=== PATIENT | female | born 1970 | race Caucasian/White ===

== ENCOUNTER → 2017-11-07 15:46 | Outpatient (REF) | payer MEDICAID, SELFPAY ==
[2017-11-07 20:52] LABS: Abs Immature Grans 0.01 k/cumm (0.0-0.09); Absolute Basophil Count 0.04 k/cumm (0.0-0.2); Absolute Eosinophil Count 0.23 k/cumm (0.0-0.7); Absolute Lymphocyte Count 3.01 k/cumm (1.2-3.4); Absolute Monocyte Count 0.89 k/cumm (0.11-0.7); Absolute Neutrophil Count 4.78 k/cumm (1.2-6.7); Basophils % 0.4; Eosinophils % 2.6; HCT 40.4 % (36.0-46.0); HGB 13.6 g/dL (12.0-15.5); Immature Grans % 0.1; Lymphocytes % 33.6; Mean Corp. HGB Concentration 33.7 g/dL (32.0-36.0); Mean Corpuscular Hemoglobin 33.9 pg (27.0-33.0); Mean Corpuscular Volume 100.7 fL (80-95); Mean Platelet Volume 11.3 fL (8.0-11.0); Monocytes % 9.9; Neutrophils % 53.4; Platelet Count 241 x1000/uL (130-400); RBC 4.01 m/cumm (4.00-5.20); RBC Distribution Width 13.3 % (11.7-14.6); White Blood Cell Count 8.96 k/cumm (4.4-10.8)
[2017-11-07 21:42] LABS: ALT 16 U/L (12-78); AST 16 U/L (15-37); Albumin 4.1 g/dL (3.4-5.0); Alkaline Phosphatase 74 U/L (46-116); Anion Gap 11.5 mmol/L (3-11); BUN 11 mg/dL (7-18); Bilirubin, Total 0.4 mg/dL (0.2-1.0); CO2 26.5 mmol/L (21.0-32.0); CREATININE 0.63 mg/dL (0.55-1.02); Calcium 8.9 mg/dL (8.5-10.1); Chloride 104 mmol/L (98-107); Creatine Kinase 65 U/L (26-192); FREE T4 0.85 ng/dL (0.76-1.46); Glucose 100 mg/dL (70-100); LDH 144 U/L (81-234); Potassium 3.6 mmol/L (3.5-5.1); Sodium 142 mmol/L (136-145); TSH 0.29 uIU/mL (0.358-3.74); Total Protein 6.9 g/dL (6.4-8.2)
[2017-11-08 16:13] LABS: T3,Free 3.9 pg/ml (2.8-5.3)
== END ==
LOC: NCHCN 15:46
PROVIDERS: PCP Internal Medicine; Visit Provider Internal Medicine
DX: R63.4 Abnormal weight loss (principal); E04.1 Nontoxic single thyroid nodule; N64.4 Mastodynia
CPT/HCPCS: 80053; 82550; 83615; 84439; 84443; 84481; 85025

== ENCOUNTER 2018-04-29 01:17 | Outpatient (CLI) | payer MEDICAID, SELFPAY ==
--- NOTE | 2018-04-29 14:10 | DI.CT_ITS ---
SYMPTOMS/DIAGNOSIS: LEFT GROIN PAIN X 2 MOS, R10.32, NO KNOWN INJURY, NAUSEA/VOMITING,DIARRHEA X [address] WEIGHT LOSS [address] OF THE ABDOMEN AND PELVIS: Comparison is made with March,. The exam is somewhat limited by lack of intraabdominal fat. The heart size is normal. The lung bases are clear. the liver, gallbladder, spleen, adrenals, pancreas and kidneys are unremarkable. The urinary bladder is nearly empty. The patient is status post hysterectomy. There is no bowel dilatation or wall thickening. There is a moderate quantity of stool. No adenopathy, free air or free fluid is seen. There is calcification in the abdominal aorta but no evidence of an aneurysm. IMPRESSION: No acute abnormality.
[2018-04-29] MEDS: Omnipaque 350 MG/ML 100 ML BTL 66 ML IJ (14:11)
[2018-04-29] MEDS: Omnipaque 350 MG/ML 50 ML BTL IJ (14:12)
== END 2018-04-29 01:37 ==
PROVIDERS: PCP Internal Medicine; Visit Provider Internal Medicine
DX: R10.32 Left lower quadrant pain (principal); R11.2 Nausea with vomiting, unspecified; R19.7 Diarrhea, unspecified; R63.4 Abnormal weight loss
CPT/HCPCS: 74177; J3490; Q9967

== ENCOUNTER 2018-05-22 00:17 | Outpatient (CLI) | payer MEDICAID, SELFPAY ==
--- NOTE | 2018-05-22 14:49 | DI.MRI_ITS ---
SYMPTOMS/DIAGNOSIS: HEADACHE, R51, CHIARI MALFORMATION, G93.5 MRI OF THE BRAIN: Routine noncontrast examination was performed. Comparison examinations are 08/21/16 and 06/30/12. There are again seen postsurgical changes in the posterior cranial fossa. The low-lying cerebellar tonsils are unchanged in configuration compared to the prior examination. There is normal signal in the brain parenchyma. The ventricles are intact. The basilar cisterns are patent. There is no acute midline shift or mass effect. The diffusion weighted images have a normal appearance. Gradient imaging shows no intracranial hemorrhage. There is a flow void in the standing rock of [place]. The pituitary gland appears grossly unremarkable. There is mucosal thickening in the maxillary sinuses, ethmoid air cells and left sphenoid sinus. No fluid levels are seen. The orbits and retroorbital soft tissues are unremarkable. IMPRESSION: No acute intracranial process.
== END 2018-05-22 00:37 ==
PROVIDERS: PCP Internal Medicine; Visit Provider Internal Medicine
DX: R51 Headache (principal); G93.5 Compression of brain
CPT/HCPCS: 70551

== ENCOUNTER 2018-10-24 16:31 | Outpatient (REF) | payer MEDICAID, SELFPAY ==
[2018-10-24 21:16] LABS: ALT 20 U/L (12-78); AST 9 U/L (15-37); Albumin 3.5 g/dL (3.4-5.0); Alkaline Phosphatase 90 U/L (46-116); Anion Gap 13.2 mmol/L (3-11); BUN 9 mg/dL (7-18); Bilirubin, Total 0.9 mg/dL (0.2-1.0); CO2 26.8 mmol/L (21.0-32.0); CREATININE 0.71 mg/dL (0.55-1.02); Calcium 10.2 mg/dL (8.5-10.1); Chloride 101 mmol/L (98-107); FREE T4 1.02 ng/dL (0.76-1.46); Glucose 108 mg/dL (70-100); Magnesium 2.1 mg/dL (1.8-2.4); Potassium 3.8 mmol/L (3.5-5.1); Sodium 141 mmol/L (136-145); TSH 0.14 uIU/mL (0.36-3.74); Total Protein 8.6 g/dL (6.4-8.2)
[2018-10-26 16:51] LABS: T3,Free 3.5 pg/ml (2.8-5.3)
== END 2018-10-24 16:51 ==
LOC: NCHCN 16:31
PROVIDERS: PCP Internal Medicine; Visit Provider Internal Medicine
DX: E04.1 Nontoxic single thyroid nodule (principal); M79.10 Myalgia, unspecified site; R63.4 Abnormal weight loss; R61 Generalized hyperhidrosis; R25.2 Cramp and spasm
CPT/HCPCS: 80053; 83735; 84439; 84443; 84481

== ENCOUNTER 2018-12-08 15:33 | Emergency (ER) | payer MEDICAID, SELFPAY ==
[2018-12-08] VITALS (7 sets, daily range): BP systolic 114–130; BP diastolic 75–87; PULSE 104–131; RESP 5–28; TEMP 36.6–36.9; O2SAT 94–98
--- NOTE | 2018-12-08 16:00 | W.ED.GENAD ---
Discharge Plan Disposition Patient Disposition: HOME Condition: Improving Discharge Details Chief Complaint: RespSymp Clinical Impression: Pneumonia Primary Care Provider: Drew Gomez ED Provider: Liliana Rolon Home Meds and New Rx's Prescriptions: New doxycycline hyclate 100 mg capsule 100 mg PO BID Qty: 14 RF: 0 Continued Stiolto Respimat 2.5-2.5 mcg/actuation mist 2 puff IH DAILY RF: 0 oxycodone-acetaminophen 5-325 mg tablet 1 tab PO Q6H RF: 0 Narcan 4 mg/actuation spray,non-aerosol 1 spray VIDA ONCE PRNRF: 0 clonazepam [Klonopin] 0.5 mg tablet 0.5 mg PO BID RF: 0 fentanyl 25 mcg/hr patch 72 hour 1 patch TD Q72H RF: 0 albuterol sulfate [Ventolin HFA] 90 mcg/actuation HFA aerosol inhaler 2 puff IH QID RF: 0 fluticasone propion-salmeterol [Advair Diskus] 1 EACH blister with device 1 inh Inhalation DAILY RF: 0 albuterol sulfate [Proventil HFA] 1 PUFF HFA aerosol inhaler 2 puff Inhalation DIRECTED Qty: 1 RF: 0 Discharge Instructions Instructions: Doxycycline (By mouth), Pneumonia (ED) Additional Instructions: Encourage hydration. May use Tylenol and ibuprofen as needed for discomfort. Please take doxycycline as prescribed, you will need to take 100 mg tablet every 12 hours for the next 7 days. If you develop shortness of breath, difficulty breathing, chest pain, inability to hydrate or other new/worsening symptoms please seek care urgently once again. Please follow-up with primary care in 1 week if not improved. Referrals: Drew Gomez MD [Primary Care Provider] - Discharge Data Discharge Date/Time-TO BE ENTERED AT DEPARTURE: 12/08/18 21:46 Medical Decision Making <SANDY Tian - Last Filed: 12/08/18 23:39> Patient is a 48 year old female with hx of anxiety, COPD, depression, JOSUE, chiari malformation, active smoker, thyroid nodule and unintentional weight loss. She presents today with cough that began 4 days ago associated with fever, sore throat, malaise. Has had sputum production. Patient has known pulmonary nodules. Was referred to pulmonology last summer, states that she was noncompliant with her follow up. She is endorsing JOSUE at this time but states that it is typical JOSUE for which she normally take percocet. Denies neck pain, back pain, rash, weakness, sensation changes. On exam, lungs are course, particularly in the RLL with wheezing throughout. Will give breathing treatment and obtain cxr. She has had unintentional weight loss and appears cachectic, reports she has lost 9 lb over the past year. FINDINGS: Lungs: Unchanged hyperinflation of the lungs with flattening of the diaphragms likely due to COPD. Possible new retrocardiac airspace opacity demonstrated on lateral view projecting over the distal thoracic vertebral bodies. Pleural space: No large pleural effusion. No large pneumothorax. Heart/Mediastinum: Cardiomediastinal silhouette is unchanged. Vasculature: Unchanged vascular calcifications of the aorta. Bones/joints: Mild degenerative change of the spine. IMPRESSION: 1. Possible new retrocardiac airspace opacity as above this may represent atelectasis or infectious etiology. 2. Likely COPD. She patient is tachycardic but does appear dehydrated. Her tachycardia is noted to be elevated 134 but this is after she received her albuterol nebulizer. Plan to have the patient hydrate orally. Will begin her on steroids and antibiotics. Attempted to see the patient multiple times to discuss findings. Initially, she was outside smoking, now she has gone to get food.. Cancelled the order on prednisone as she has a documented allergy to this medication. Patient came back after getting food, she is resting comfortably. I did reevaluate her and she continues to be tachycardic at 130. I had brought her 2 glasses of water and she was able to drink easily. Despite this oral rehydration, patient remains tachycardic. I am concerned therefore that something else is driving his tachycardia and feel that line, hydration and further evaluation is appropriate at this time. Given the tachycardia, I am unable to use PERC criteria to rule out PE. ECG reviewed by Dr. Childers. Patient in sinus tachycardia, rate 102. No evidence of acute ischemic changes. Patient's white count is 21. She is not anemic. She does have a left shift. Potassium slightly low 3.3, will replenish this orally. Her d-dimer is in within normal limits. Troponin is WNL. Lactate within normal limits. Patient received IV hydration. She is received her first dose of doxycycline. Patient's heart is now down to 100bpm. This is typical baseline for the patient. She is feeling much improved. Patient discharged home. Will continue to PO Doxycycline for pneumonia. Encouraged close f/u with PCP. She will call tomorrow to schedule appointment. She was given strict return precautions. All of her questions and concers were addressed, she is in agreement wiht this plan. <Andres Childers DO - Last Filed: 12/08/18 21:49> EKG 21: 25 I will rate 102, intervals normal, sinus tachycardia, inverted T waves in V1 and V2, no significant ST elevation or depression, clear no other significant abnormalities, no evidence of STEMI. Small Q wave in lead III. Previous EKG from 2005 demonstrates near identical findings except for the inverted T wave in V2. HPI <SANDY Tian - Last Filed: 12/08/18 23:39> General Mode of arrival: ambulatory. Date/Time Provider Initiated Documentation: 12/08/18 15:59. Limitations to Documentation: no limitations. Information obtained by: patient and RN notes reviewed. HPI Narrative: Patient is a 48 year old female, known to myself, with c/c of cough. STates that cough began 4 days ago. Staes that she has been feeling SOB with this. Denies CP. Cough has been wet, bringing up sputum. Endorsing wheezing, has been using home nebulizer which has helped with symtomatic management, last used this last night. Endorses fevers at home with T max 103. Endorses sore throat, attributes mainly to cough. No congestion, denies ear pain. Reports she has mild nausea earlier but states that this has since subsided. No abdominal pain. Is also endorsing JOSUE, states this is typical and associates with her known migraines. Denies neck pain. Related Data Home Medications Medication Instructions Recorded Confirmed fluticasone propion-salmeterol 1 inh INHALATION DAILY 07/09/14 12/08/18 [Advair Diskus] albuterol sulfate [Proventil HFA] 2 puff INHALATION DIRECTED #1 08/09/15 12/08/18 inh albuterol sulfate 90 mcg/actuation 2 puff IH QID 04/11/18 12/08/18 aerosol inhaler clonazepam 0.5 mg tablet 0.5 mg PO BID 04/11/18 12/08/18 fentanyl 25 mcg/hr transdermal 1 patch TD Q72H 04/11/18 12/08/18 patch naloxone 4 mg/actuation nasal spray 1 spray VIDA ONCE PRN 04/11/18 12/08/18 oxycodone-acetaminophen 5 mg-325 1 tab PO Q6H 04/11/18 12/08/18 mg tablet tiotropium 2.5 mcg-olodaterol 2.5 2 puff IH DAILY 04/11/18 12/08/18 mcg/actuation mist for inhalation doxycycline hyclate 100 mg PO BID #14 cap 12/08/18 Previous Rx's Medication Instructions Recorded albuterol sulfate [Proventil HFA] 2 puff INHALATION DIRECTED #1 08/09/15 inh doxycycline hyclate 100 mg PO BID #14 cap 12/08/18 Allergies Allergy/AdvReac Type Severity Reaction Status Date / Time codeine AdvReac Intermediate Hives Unverified 12/08/18 15:48 prednisone AdvReac Intermediate emotional Unverified 12/08/18 15:48 contrast dye AdvReac Intermediate severe Uncoded 12/08/18 15:48 vomiting General Stated Complaint: RespSymp REYNALDO: 3 Review of Systems <SANDY Tian - Last Filed: 12/08/18 23:39> Constitutional Reports as per HPI, Reports body ache(s), Reports chills, Reports fatigue, Reports fever(s), Reports headache(s), Reports malaise, Reports night sweats, Reports poor appetite and Reports weight loss Eyes Reports as per HPI, Denies eye discharge and Denies irritation ENT Reports as per HPI, Reports headache(s), Denies sinus pain, Denies sinus pressure, Reports sore throat, Denies throat swelling and Denies tongue swelling Cardiovascular Reports as per HPI, Denies chest pain, Denies chest pain at rest, Denies chest pain with activity, Denies syncope, Denies lightheadedness, Denies radiating jaw, neck or arm pain, Denies palpitations, Reports dyspnea (with cough) and Denies dyspnea on exertion Respiratory Reports as per HPI, Reports chest congestion, Reports cough, Denies hemoptysis, Denies pain on inspiration, Denies pain with cough, Reports dyspnea (with cough), Denies dyspnea on exertion, Denies stridor and Reports wheezing Gastrointestinal Reports as per HPI, Denies abdominal pain, Denies change in bowel habits, Reports nausea and Denies vomiting Genitourinary Reports system reviewed and no additional complaints, except as docu (reports no change in urinary habits) Integumentary/Breasts Reports as per HPI and Denies rash Neurologic Reports as per HPI, Denies syncope and Reports headache(s) Endocrine Reports fatigue and Denies palpitations Allergic/Immunologic Denies throat swelling, Denies tongue swelling and Reports wheezing PFSH <SANDY Tian - Last Filed: 12/08/18 23:39> Medical History AA (alcohol abuse) Anxiety Asthma Back pain (Acute) COPD (chronic obstructive pulmonary disease) (Chronic) Depression Dysphagia (Acute) Fatigue (Acute) Headache (Acute) History of Chiari malformation Macrocytosis (Acute) Myalgia (Acute) Positive SUKHWINDER (antinuclear antibody) (Acute) Smoker (Acute) Substance abuse Thyroid nodule (Acute) Unintentional weight loss (Acute) Weakness (Acute) Surgical History Abdominal hysterectomy Craniotomy Social History Smoking/Tobacco Use Status: Current every day Drug use: Occasionally Substance use type: marijuana Do you feel safe at home: Yes Do you feel safe in your relationship?: Yes Exam <SANDY Tian - Last Filed: 12/08/18 23:39> Const General: cooperative, comfortable, no acute distress, well groomed, frail appearing, ill appearing chronically and No well hydrated Nutritional Appearance: cachectic, malnourished and underweight Orientation: alert and awake [facility] Head: normal to inspection, normocephalic and atraumatic Ears: hearing grossly normal bilaterally, external ears normal and TM's normal bilaterally General nose exam: external nose normal and nares normal Face and sinus: normal facial exam, sinuses nontender and face symmetric Mouth: oral mucosae normal, lip normal, tongue normal, oropharynx normal and mucous membranes dry Teeth and gingiva: dentition normal Throat: posterior oropharynx normal, tonsils normal and uvula midline Eyes General: appearance normal, both eyes and all related structures Neck Neck: normal visual inspection, full ROM, no lymphadenopathy and no meningeal signs Resp Effort & Inspection: normal respiratory effort, able to speak in complete sentences and no respiratory distress Auscultation: crackles (RLL), no rales, no rhonchi and wheezes expiratory wheezes (diffuse faint wheezing) Cardio Rate: regular rate Rhythm: regular rhythm Heart Sounds: S1 normal and S2 normal GI Inspection: normal to inspection Skin General skin exam: no rashes or lesions noted Neuro General: alert and awake Cognition: normal cognition Speech: speech normal Gait: normal gait Extrem General: normal to inspection, normal capillary refill, no pedal edema, no calf tenderness and normal gait Psych Appearance: grossly normal and well kempt Mental Status: mental status grossly normal Speech and Movement: speech and movement normal Course <SANDY Tian - Last Filed: 12/08/18 23:39> Vital Signs Temperature 36.9 C 12/08/18 15:44 Pulse 113 H 12/08/18 15:44 Respiratory Rate 28 H 12/08/18 15:44 Blood Pressure 114/75 12/08/18 15:44 Pulse Oximetry 97 12/08/18 15:44 Temperature 36.9 C 12/08/18 15:44 Temperature Source Skin 12/08/18 15:44 Pulse 113 H 12/08/18 15:44 Respiratory Rate 28 H 12/08/18 15:44 Blood Pressure 114/75 12/08/18 15:44 Blood Pressure Position Sitting 12/08/18 15:44 Pulse Oximetry 97 12/08/18 15:44 Oxygen Delivery Method Room Air 12/08/18 15:44 Oxygen Flow Rate 0 12/08/18 15:44 Pain Level 10 12/08/18 15:44
--- NOTE | 2018-12-08 16:11 | DI.RAD_ITS ---
SYMPTOM/DIAGNOSIS: COUGH PA AND LATERAL CHEST: 12/08 The heart is not enlarged. Comparison with the previous examination of 04/02/2017 shows a question of new radiodensity projected posteriorly on the lateral view, this may lie retrocardiac on the right. Otherwise, lungs appear clear except for mild diffuse interstitial chronic changes and changes of COPD. No pleural effusion seen. CONCLUSION: Suspect basilar infiltrate. Appropriate follow up studies requested.
[2018-12-08] MEDS: Ketorolac 30 MG/ML VIAL IM (16:34)
[2018-12-08] MEDS: Acetaminophen 325 MG TAB 650 MG PO (16:35)
[2018-12-08] MEDS: Albuterol/Ipratropium 3 ML UPD VIAL UPD (16:45)
--- NOTE | 2018-12-08 17:13 | DI.VRAD_ITS ---
EXAM: XR Chest, 2 Views EXAM DATE/TIME: 12/08/2018 4:58 PM CLINICAL HISTORY: 48 years old, female; Cough and fever TECHNIQUE: Imaging protocol: XR of the chest Views: 2 views. COMPARISON: CR CHEST 2 VIEWS PA,LAT 04/02/2017 6:02 PM FINDINGS: Lungs: Unchanged hyperinflation of the lungs with flattening of the diaphragms likely due to COPD. Possible new retrocardiac airspace opacity demonstrated on lateral view projecting over the distal thoracic vertebral bodies. Pleural space: No large pleural effusion. No large pneumothorax. Heart/Mediastinum: Cardiomediastinal silhouette is unchanged. Vasculature: Unchanged vascular calcifications of the aorta. Bones/joints: Mild degenerative change of the spine. IMPRESSION: 1. Possible new retrocardiac airspace opacity as above this may represent atelectasis or infectious etiology. 2. Likely COPD. Dictated and Authenticated by: Teresa Castorena MD. Ordering:NEDA Ford MD
[2018-12-08] MEDS: Doxycycline Hyclate 100 MG CAP PO (18:15)
[2018-12-08] MEDS: oxyCODONE 5 mg/Acetaminophen 325 mg TAB 1 TAB PO (19:33)
[2018-12-08] MEDS: Normal Saline 1,000 ML 1000 ML IV (19:35)
[2018-12-08 19:36] LABS: Abs Immature Grans 0.04 k/cumm (0.0-0.09); Absolute Basophil Count 0.04 k/cumm (0.0-0.2); Absolute Eosinophil Count 0.06 k/cumm (0.0-0.7); Absolute Lymphocyte Count 2.83 k/cumm (1.2-3.4); Basophils % 0.2; Eosinophils % 0.3; HCT 46.5 % (36.0-46.0); HGB 15.7 g/dL (12.0-15.5); Immature Grans % 0.2; Lymphocytes % 13.4; Mean Corp. HGB Concentration 33.8 g/dL (32.0-36.0); Mean Corpuscular Hemoglobin 33.3 pg (27.0-33.0); Mean Corpuscular Volume 98.7 fL (80-95); Mean Platelet Volume 10.4 fL (8.0-11.0); Monocytes % 8.6; Neutrophils % 77.3; Platelet Count 262 x1000/uL (130-400); RBC 4.71 m/cumm (4.00-5.20); RBC Distribution Width 13.2 % (11.7-14.6); White Blood Cell Count 21.14 k/cumm (4.4-10.8)
[2018-12-08 19:48] LABS: Absolute Monocyte Count 1.82 k/cumm (0.11-0.7); Absolute Neutrophil Count 16.34 k/cumm (1.2-6.7)
[2018-12-08 19:57] LABS: ALT 15 U/L (14-59); AST 10 U/L (15-37); Albumin 4.5 g/dL (3.4-5.0); Alkaline Phosphatase 106 U/L (46-116); Anion Gap 9.6 mmol/L (3-11); BUN 10 mg/dL (7-18); Bilirubin, Total 0.7 mg/dL (0.2-1.0); CO2 30.4 mmol/L (21.0-32.0); CREATININE 0.72 mg/dL (0.55-1.02); Calcium 9.7 mg/dL (8.5-10.1); Chloride 96 mmol/L (98-107); Glucose 103 mg/dL (70-100); Potassium 3.3 mmol/L (3.5-5.1); Sodium 136 mmol/L (136-145); Total Protein 9.1 g/dL (6.4-8.2)
[2018-12-08 20:13] LABS: Diff Comment Diff Reviewed; Macrocytosis 1+
[2018-12-08 20:14] LABS: D-Dimer 374 ng/mlFEU (<500)
[2018-12-08 20:48] LABS: Lactate 0.7 mmol/L (0.6-1.4)
[2018-12-08 20:53] LABS: NT-proBNP 103 pg/mL; Troponin I < 0.05 ng/mL (0.00-0.06)
[2018-12-08] MEDS: Potassium Chloride 20 MEQ TABCR PO (21:39)
== END 2018-12-08 21:46 | disposition home or self-care (01) ==
PROVIDERS: Emergency Provider Physician Assistant; PCP Internal Medicine
DX: J18.9 Pneumonia, unspecified organism (principal); J44.9 Chronic obstructive pulmonary disease, unspecified; F17.210 Nicotine dependence, cigarettes, uncomplicated
CPT/HCPCS: 36415; 80053; 93005; 94640; 96360; 96361; 96372; 99284; 71046; 83605; 83880; 84484; 85025; 85379; 93010; J1885; J7620

== ENCOUNTER 2018-12-17 18:24 | Emergency (ER) | payer MEDICAID, SELFPAY ==
[2018-12-17 18:28] VITALS: BP 117/77; PULSE 125; RESP 20; TEMP 36.8; O2SAT 95
--- NOTE | 2018-12-17 18:45 | ED.GENADUL_ITS ---
Discharge Plan Disposition Patient Disposition: HOME Condition: Fair Discharge Details Chief Complaint: RespSymp Clinical Impression: Pneumonia Primary Care Provider: Drew Gomez ED Provider: Liliana Rolon Home Meds and New Rx's Prescriptions: New prednisone 20 mg tablet 40 mg PO DAILY Qty: 8 RF: 0 levofloxacin 750 mg tablet 750 mg PO DAILY Qty: 4 RF: 0 Continued Stiolto Respimat 2.5-2.5 mcg/actuation mist 2 puff IH DAILY RF: 0 oxycodone-acetaminophen 5-325 mg tablet 1 tab PO Q6H RF: 0 Narcan 4 mg/actuation spray,non-aerosol 1 spray VIDA ONCE PRNRF: 0 clonazepam [Klonopin] 0.5 mg tablet 0.5 mg PO BID RF: 0 fentanyl 25 mcg/hr patch 72 hour 1 patch TD Q72H RF: 0 albuterol sulfate [Ventolin HFA] 90 mcg/actuation HFA aerosol inhaler 2 puff IH QID RF: 0 fluticasone propion-salmeterol [Advair Diskus] 1 EACH blister with device 1 inh Inhalation DAILY RF: 0 albuterol sulfate [Proventil HFA] 1 PUFF HFA aerosol inhaler 2 puff Inhalation DIRECTED Qty: 1 RF: 0 Discontinued amoxicillin-pot clavulanate [Augmentin] 875-125 mg Tablet RF: 0 Discharge Instructions Instructions: Levofloxacin (By mouth), Pneumonia (ED) Additional Instructions: Encourage hydration. You may use Tylenol and/or ibuprofen as needed for discomfort. Please take levofloxacin as prescribed. You are given your first dose here tonight, next dose was taken tomorrow night. First dose of steroids were given here as well, please take the next dose tomorrow night. Please follow-up with primary care at the end of the week for reevaluation. If you develop difficulty breathing, increased shortness of breath inability stay hydrated or the new/worsening symptoms please seek care urgently once again. Stop smoking. Referrals: Drew Gomez MD [Primary Care Provider] - Discharge Data Discharge Date/Time-TO BE ENTERED AT DEPARTURE: 12/17/18 21:36 Medical Decision Making <Andres Childers DO - Last Filed: 12/17/18 19:55> EKG 19: 27 Rate 122, sinus tachycardia, intervals normal aside from minimally prolonged QT 467, no significant ST elevations or depressions, inverted T wave is present in V1 and V2, RSR prime in V1 and V2, there is slight atypical less than 1 mm elevation in V3, this may be rate related. Small Q wave in lead II, III, and aVF. <SANDY Tian - Last Filed: 12/17/18 22:41> New patient 48-year-old female presents with chief complaint of cough and shortness of breath. Patient has been on 2 regimens of antibiotics thus far without any improvement of her symptoms. She reports her shortness of breath and the cough has increased. States the cough is become more productive. Denies any fevers. Continues to smoke. On exam, patient is noted to be thin. She is speaking in complete sentences. Her oxygen is low at 89% on room air. Tachycardic at 125. Patient is tachycardic like this when she came in previously. She has some scattered expiratory wheezes. Patient does have known diagnosis of COPD. Patient also has rhonchi of the right lower lobe, I remain concerned for possible pneumonia. Is normal cardiac exam. No carotid bruits. Normal exam of bilateral lower extremities. Repeat laboratory evaluation. Patient's white count remains elevated at 17 but this coming down from 21 when she was seen here 9 days ago. Potassium is low at 3.3, will replenish this year. Troponin is normal at 0.05. D-dimer remains within normal limits at 367. FINDINGS: Lungs: No focal areas of consolidation. Pleural space: No pleural effusion or pneumothorax. Heart/Mediastinum: Cardiac and mediastinal silhouettes are unremarkable. Bones/joints: No acute osseus lesion or fracture. IMPRESSION: No acute cardiopulmonary pathology. Discussed these findings with the patient. Patient was given a DuoNeb is feeling improved. Oxygen has improved. She was given a liter fluid as she did appear dry. Heart rate is down to 104, this is fairly typical for the patient. She was ambulated about the department and did not become hypoxic. Continues to speak in full sentences even with ambulation. Do not feel that CT is necessary at this time as d-dimer is negative. I had seen the patient last year, I have a concern for possible cancerous etiology of her unexplained weight loss and persistent respiratory symptoms. However, she has had multiple CT scans of her chest without any evidence of masses. I do not feel that repeat CT scan is necessary at this time. Rather, feel that changing the patient's antibiotic levofloxacin is appropriate. We discussed possible side effects, particularly tendon rupture, with use of this medication. Patient will also begin on a steroid regimen. She reports she has had emotional irritability with prednisone but typically this is at very high doses. Patient will be given IV Solu-Medrol while here in the transition to oral prednisone tomorrow. I encouraged hydration. Advise close follow-up with primary care, she will call tomorrow to schedule follow-up appointment. She was given strict return precautions. All her questions and concerns were addressed and she is in agreement this plan. HPI <Andres Childers, DO - Last Filed: 12/17/18 19:55> General Date/Time Provider Initiated Documentation: 12/17/18 18:43 . Related Data Home Medications Medication Instructions Recorded Confirmed fluticasone propion-salmeterol 1 inh INHALATION DAILY 07/09/14 12/17/18 [Advair Diskus] albuterol sulfate [Proventil HFA] 2 puff INHALATION DIRECTED #1 08/09/15 12/17/18 inh albuterol sulfate 90 mcg/actuation 2 puff IH QID 04/11/18 12/17/18 aerosol inhaler clonazepam 0.5 mg tablet 0.5 mg PO BID 04/11/18 12/17/18 fentanyl 25 mcg/hr transdermal 1 patch TD Q72H 04/11/18 12/17/18 patch naloxone 4 mg/actuation nasal spray 1 spray VIDA ONCE PRN 04/11/18 12/17/18 oxycodone-acetaminophen 5 mg-325 1 tab PO Q6H 04/11/18 12/17/18 mg tablet tiotropium 2.5 mcg-olodaterol 2.5 2 puff IH DAILY 04/11/18 12/17/18 mcg/actuation mist for inhalation levofloxacin 750 mg PO DAILY #4 tab 12/17/18 prednisone 40 mg PO DAILY #8 tab 12/17/18 Previous Rx's Medication Instructions Recorded albuterol sulfate [Proventil HFA] 2 puff INHALATION DIRECTED #1 08/09/15 inh levofloxacin 750 mg PO DAILY #4 tab 12/17/18 prednisone 40 mg PO DAILY #8 tab 09/18/19 Allergies Allergy/AdvReac Type Severity Reaction Status Date / Time codeine AdvReac Intermediate Hives Unverified 12/17/18 18:35 prednisone AdvReac Intermediate emotional Unverified 12/17/18 18:35 contrast dye AdvReac Intermediate severe Uncoded 12/17/18 18:35 vomiting <SANDY Tian - Last Filed: 12/17/18 22:41> General Mode of arrival: ambulatory . Limitations to Documentation: no limitations . Information obtained by: patient, family and RN notes reviewed . HPI Narrative: Patient is a 48 year old female, accompanied by daughter, with c/c for continued cough. She was seen by myself on 12/08/18 at which time she was diagnosed with pneumonia and begun on doxycyline. She reports that the doxycycline made her vomit and she was changed to Augmentin by her PCP. States that she has been on the Augmentin for the past week and despite this her cough has worsened. She is now endorsing SOB, particularly with exertion and cough. Has discomfort associated with cough. Denies neck/back/UE/abdominal pain. No known fevers. Has been using her nebulizer as prescribed. Patient is an active smoker. Denies recent travel. GI upset stopped wth cessation of the doxycycline. Patient has hx anxiety, COPD, depression, chiari malformation, macrocytosis. General Stated Complaint: RespSymp REYNALDO: 3 <SANDY Tian - Last Filed: 12/17/18 22:41> Constitutional Constitutional: Reports as per HPI, Denies chills, Denies fever(s), Denies headache(s), Denies lethargy and Denies poor appetite Eyes Eyes: Denies change in vision ENT Ears, Nose, Mouth, and Throat: Denies dizziness and Denies headache(s) Cardiovascular Cardiovascular: Reports as per HPI, Denies dyspnea and Denies dyspnea on exertion Respiratory Respiratory: Reports as per HPI, Denies chest congestion, Denies cough, Denies pain on inspiration, Denies pain with cough, Denies dyspnea, Denies dyspnea on exertion and Denies wheezing Gastrointestinal Gastrointestinal: Reports as per HPI, Denies abdominal pain, Denies diarrhea, Denies nausea and Denies vomiting Musculoskeletal Musculoskeletal: Reports as per HPI and Denies back pain Integumentary/Breasts Skin/Breast: Reports as per HPI and Denies rash Neurologic Neurologic: Reports as per HPI, Denies dizziness and Denies headache(s) Allergic/Immunologic Allergic/Immunologic: Denies wheezing PFSH <Andres Childers DO - Last Filed: 12/17/18 19:55> Social History Smoking/Tobacco Use Status: Current every day Drug use: Occasionally Substance use type: marijuana Do you feel safe at home: Yes Do you feel safe in your relationship?: Yes <SANDY Tian - Last Filed: 12/17/18 22:41> Const General: cooperative, healthy appearing, comfortable, no acute distress and well developed Nutritional Appearance: well nourished and thin Orientation: alert, awake and oriented x3 HENMT Head: normal to inspection Ears: hearing grossly normal bilaterally Mouth: oral mucosae normal and mucous membranes dry (patient appears dry) Throat: posterior oropharynx normal, tonsils normal and uvula midline Chest Chest: normal inspection of the chest, normal palpation of entire chest wall and no crepitus Resp Effort & Inspection: normal respiratory effort, able to speak in complete sentences and no respiratory distress Auscultation: lung sounds not diminished, no rales, rhonchi right lower and wheezes expiratory wheezes and scattered wheezes Cardio Rate: regular rate Rhythm: regular rhythm Heart Sounds: S1 normal and S2 normal GI Inspection: normal to inspection, no edema and non-distended Palpation: soft, no hepatosplenomegaly, not firm, no guarding, not rigid and nontender Auscultation: normal bowel sounds Back/Spine/Pelvis Back: no CVA tenderness Thoracic/Lumbar Spine: thoracic and lumbar spine normal to inspection Skin General skin exam: no rashes or lesions noted Trauma: no lacerations or abrasions Neuro General: alert, awake and oriented x3 Cognition: normal cognition Speech: speech normal Gait: normal gait Extrem General: normal to inspection, normal capillary refill, no pedal edema, no calf tenderness and normal gait Psych Appearance: grossly normal and well kempt Mental Status: mental status grossly normal Speech and Movement: speech and movement normal <SANDY Tian - Last Filed: 12/17/18 22:41> Vital Signs Vital signs: Vital Signs Temperature 36.8 C 12/17/18 18:28 Pulse 125 H 12/17/18 18:28 Respiratory Rate 20 09/18/19 18:28 Blood Pressure 117/77 12/17/18 18:28 Pulse Oximetry 95 12/17/18 18:28 Temperature 36.8 C 12/17/18 18:28 Temperature Source Temporal Artery Scan 12/17/18 18:28 Pulse 125 H 12/17/18 18:28 Respiratory Rate 20 12/17/18 18:28 Blood Pressure 117/77 12/17/18 18:28 Pulse Oximetry 95 12/17/18 18:28 Oxygen Delivery Method Room Air 12/17/18 18:28 Oxygen Flow Rate 0 12/17/18 18:28 Pain Level 7 12/17/18 18:28 Comment 12/17/18 18:28
[2018-12-17] MEDS: Albuterol/Ipratropium 3 ML UPD VIAL (19:05)
[2018-12-17] MEDS: Normal Saline 1,000 ML 1000 ML IV (19:52)
[2018-12-17 19:58] LABS: Abs Immature Grans 0.03 k/cumm (0.0-0.09); Absolute Basophil Count 0.05 k/cumm (0.0-0.2); Absolute Lymphocyte Count 4.09 k/cumm (1.2-3.4); Absolute Monocyte Count 1.02 k/cumm (0.11-0.7); Basophils % 0.3; Eosinophils % 1.6; HCT 41.9 % (36.0-46.0); Immature Grans % 0.2; Lymphocytes % 23.6; Mean Corp. HGB Concentration 33.4 g/dL (32.0-36.0); Mean Corpuscular Hemoglobin 32.6 pg (27.0-33.0); Mean Corpuscular Volume 97.7 fL (80-95); Mean Platelet Volume 9.4 fL (8.0-11.0); Monocytes % 5.9; Neutrophils % 68.4; Platelet Count 579 x1000/uL (130-400); RBC 4.29 m/cumm (4.00-5.20); RBC Distribution Width 13.2 % (11.7-14.6); White Blood Cell Count 17.31 k/cumm (4.4-10.8)
[2018-12-17 20:02] LABS: Absolute Eosinophil Count 0.28 k/cumm (0.0-0.7); Absolute Neutrophil Count 11.84 k/cumm (1.2-6.7)
--- NOTE | 2018-12-17 20:10 | DI.RAD_ITS ---
EXAM: XR CHEST 2V PA LATERAL INDICATION: cough, SOB. COMPARISON: XR CHEST 2V PA LATERAL from 12/08/2018 TECHNIQUE: 2D digital imaging was performed. FINDINGS: There is evidence of COPD. There is a question regarding a small region of infiltration involving the retrocardiac portion of the lung on the lateral projection. No evidence of a pleural effusion or pne umothorax. The cardiovascular structures appear intact. Mild degenerative changes involving the dors al spine are identified. IMPRESSION: COPD. On the lateral projection there is a question regarding a small area of pulmonary infiltration. This finding could represent a region of atelectasis or infiltration.
[2018-12-17 20:18] LABS: ALT 19 U/L (14-59); AST 13 U/L (15-37); Alkaline Phosphatase 89 U/L (46-116); Anion Gap 11.4 mmol/L (3-11); BUN 13 mg/dL (7-18); Bilirubin, Total 0.3 mg/dL (0.2-1.0); CO2 29.6 mmol/L (21.0-32.0); CREATININE 0.67 mg/dL (0.55-1.02); Chloride 100 mmol/L (98-107); Glucose 110 mg/dL (70-100); Magnesium 1.9 mg/dL (1.8-2.4); Potassium 3.3 mmol/L (3.5-5.1); Sodium 141 mmol/L (136-145); Total Protein 8.1 g/dL (6.4-8.2)
--- NOTE | 2018-12-17 20:20 | DI.VRAD_ITS ---
PROCEDURE INFORMATION: Exam: XR Chest, 2 Views Exam date and time: 12/17/2018 7:13 PM Clinical history: 48 years old, female; Other: Cough, SOB TECHNIQUE: Imaging protocol: XR of the chest Views: 2 views. COMPARISON: SC XR CHEST 2V PA LATERAL 12/08/2018 4:57 PM FINDINGS: Lungs: No focal areas of consolidation. Pleural space: No pleural effusion or pneumothorax. Heart/Mediastinum: Cardiac and mediastinal silhouettes are unremarkable. Bones/joints: No acute osseus lesion or fracture. IMPRESSION: No acute cardiopulmonary pathology. Dictated and Authenticated by: Colton Calderón MD. Ordering:NEDA Ford MD
[2018-12-17 20:26] LABS: Troponin I < 0.05 ng/mL (0.00-0.06)
[2018-12-17 20:27] LABS: D-Dimer 367 ng/mlFEU (<500)
[2018-12-17 21:01] VITALS: O2SAT 94
[2018-12-17] MEDS: methylPREDNISolone SUCC 125 MG VIAL IM (21:03)
[2018-12-17 21:07] VITALS: BP 103/72; PULSE 104; RESP 19; TEMP 37.4; O2SAT 96
[2018-12-17] MEDS: levoFLOXacin 500 MG, levoFLOXacin 250 MG 750 MG PO (21:29)
== END 2018-12-17 21:36 | disposition home or self-care (01) ==
PROVIDERS: Emergency Provider Physician Assistant; PCP Internal Medicine
DX: J18.9 Pneumonia, unspecified organism (principal); J44.0 Chronic obstructive pulmonary disease with (acute) lower respiratory infection; F17.210 Nicotine dependence, cigarettes, uncomplicated
CPT/HCPCS: 80053; 93005; 96361; 96374; 99285; 71046; 83735; 84484; 85025; 85379; 93010; J2930; J7620

== ENCOUNTER 2019-02-23 18:25 | Outpatient (REF) | payer MEDICAID, SELFPAY ==
[2019-02-23 21:22] LABS: HCT 37.2 % (36.0-46.0); Mean Corp. HGB Concentration 32.3 g/dL (32.0-36.0); Mean Corpuscular Hemoglobin 32.3 pg (27.0-33.0); Platelet Count 313 x1000/uL (130-400); RBC 3.72 m/cumm (4.00-5.20); White Blood Cell Count 9.81 k/cumm (4.4-10.8)
[2019-02-23 22:18] LABS: Anion Gap 9.9 mmol/L (3-11); BUN 8 mg/dL (7-18); CO2 27.1 mmol/L (21.0-32.0); CREATININE 0.48 mg/dL (0.55-1.02); Calcium 8.8 mg/dL (8.5-10.1); Chloride 102 mmol/L (98-107); Glucose 107 mg/dL (74-106); Sodium 139 mmol/L (136-145); TSH 1.68 uIU/mL (0.36-3.74)
== END 2019-02-23 18:45 ==
LOC: NCHCN 18:25
PROVIDERS: PCP Internal Medicine; Visit Provider Internal Medicine
DX: R53.83 Other fatigue (principal); F32.9 Major depressive disorder, single episode, unspecified; R13.10 Dysphagia, unspecified; J44.9 Chronic obstructive pulmonary disease, unspecified; M54.89 Other dorsalgia
CPT/HCPCS: 80048; 85027; 84443

== ENCOUNTER 2019-03-10 01:05 | Outpatient (CLI) | payer MEDICAID, SELFPAY ==
--- NOTE | 2019-03-10 13:12 | DI.RAD_ITS ---
EXAM: XR CHEST 2V PA LATERAL INDICATION: COPD, J44.9. COMPARISON: XR CHEST 2V PA LATERAL from 12/17/2018 TECHNIQUE: 2D digital imaging was performed. FINDINGS: Heart size is within normal limits. The lungs are again noted to be hyperinflated. No infiltrate, e ffusion, pulmonary nodule or mass is seen. IMPRESSION: Emphysematous changes. No acute abnormality.
== END 2019-03-10 01:25 ==
PROVIDERS: PCP Internal Medicine; Visit Provider Internal Medicine
DX: J44.9 Chronic obstructive pulmonary disease, unspecified (principal); J43.8 Other emphysema
CPT/HCPCS: 71046

== ENCOUNTER 2019-09-21 11:52 | Emergency (ER) | payer MEDICAID, SELFPAY ==
[2019-09-21] VITALS (43 sets, daily range): BP systolic 94–128; BP diastolic 52–89; PULSE 60–104; RESP 11–29; TEMP 37.2–37.3; O2SAT 95–100
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
[2019-09-21] MEDS: Normal Saline 1,000 ML 1000 ML IV ×2 (12:55→14:20)
[2019-09-21 12:58] LABS: Lactate 1.1 mmol/L (0.6-1.4)
[2019-09-21] MEDS: Ondansetron 4 MG/2 ML VIAL (12:58)
[2019-09-21] MEDS: Normal Saline Flush 10 ML SYR IVP (12:58)
[2019-09-21 13:01] LABS: Abs Immature Grans 0.01 k/cumm (0.0-0.09); Absolute Basophil Count 0.02 k/cumm (0.0-0.2); Absolute Eosinophil Count 0.01 k/cumm (0.0-0.7); Absolute Lymphocyte Count 1.18 k/cumm (1.2-3.4); Absolute Monocyte Count 0.85 k/cumm (0.11-0.7); Absolute Neutrophil Count 5.32 k/cumm (1.2-6.7); Basophils % 0.3; Eosinophils % 0.1; HCT 41.2 % (36.0-46.0); HGB 13.9 g/dL (12.0-15.5); Immature Grans % 0.1 %; Mean Corp. HGB Concentration 33.7 g/dL (32.0-36.0); Mean Corpuscular Hemoglobin 33.3 pg (27.0-33.0); Mean Corpuscular Volume 98.8 fL (80-95); Monocytes % 11.5; Platelet Count 277 x1000/uL (130-400); RBC 4.17 m/cumm (4.00-5.20); RBC Distribution Width 12.8 % (11.7-14.6); White Blood Cell Count 7.39 k/cumm (4.4-10.8)
[2019-09-21] MEDS: Acetaminophen 500 MG TAB 1000 MG PO (13:01)
--- NOTE | 2019-09-21 13:10 | DI.RAD_ITS ---
EXAM: XR PORTABLE CHEST AP CLINICAL HISTORY: cough TECHNIQUE: 2D digital imaging was performed. COMPARISON: No exams were available for comparison FINDINGS: MEDIASTINUM: Normal. HEART: Normal. PULMONARY VASCULATURE: Normal. LUNGS: Clear. PLEURAL SPACE: No pleural effusion or pneumothorax. BONE:Normal. OTHER FINDINGS:Normal. IMPRESSION: No acute pulmonary findings. DATA REPOSITORY: RADIATION DOSE DELIVERED:
[2019-09-21 13:21] LABS: ALT 142 U/L (14-59); AST 224 U/L (15-37); Albumin 3.9 g/dL (3.4-5.0); Alkaline Phosphatase 83 U/L (46-116); Anion Gap 12.1 mmol/L (3-11); BUN 15 mg/dL (7-18); Bilirubin, Total 0.5 mg/dL (0.2-1.0); CO2 23.9 mmol/L (21.0-32.0); CREATININE 0.55 mg/dL (0.55-1.02); Calcium 8.7 mg/dL (8.5-10.1); Chloride 100 mmol/L (98-107); Glucose 95 mg/dL (74-106); Potassium 3.3 mmol/L (3.5-5.1); Sodium 136 mmol/L (136-145); Total Protein 7.3 g/dL (6.4-8.2)
[2019-09-21 13:36] LABS: D-Dimer 596 ng/mlFEU (<500)
[2019-09-21 14:29] LABS: Bilirubin Small (Negative); Blood Small (Negative); Clarity Clear (Clear); Glucose Negative (Negative); Ketones 80 mg/dL (Negative); Leukocyte Esterase Negative (Negative); Nitrite Negative (Negative); Specific Gravity >= 1.030 (1.005-1.025)
[2019-09-21 14:44] LABS: Bacteria Rare HPF (Negative); Casts Negative LPF (Negative); Crystals Negative HPF (Negative); Epithelial Cells Few HPF (Negative); Mucus Moderate (Negative); WBC 0-2 HPF (0-5)
[2019-09-21 14:45] LABS: C & S Indicated? No
--- NOTE | 2019-09-21 15:30 | DI.CT_ITS ---
EXAM: CT CHEST PE ABD PELVIS W TECHNIQUE: CT angiography of the chest, abdomen and pelvis was performed with bolus infusion of 125 cc of Omnipaque 350. Axial CT angiography was performed with multi-slice acquisition and multi-planar and/or 3D reconstruc tions. FINDINGS: Pulmonary detail is obscured by motion artifact. No pleural effusion. No evidence of pulmonary embol ic disease. No thoracic aortic dissection. No pleural effusion. No mediastinal or hilar adenopathy. T racheobronchial tree appears intact. No focal hepatic or renal abnormality seen. Gallbladder and bile ducts are CT normal. Pancreas is unr emarkable. Spleen shows unremarkable early arterial phase pattern of enhancement. No abdominal aortic aneurysm or dissection. Major branches of the abdominal aorta appear normal. No a bdominal or pelvic adenopathy. Normal appendix. No significant abdominal wall hernia. No focal bowel pathology. IMPRESSION: No evidence of acute vascular abnormality of the chest, abdomen or pelvis. No other abnormalities are seen. RADIATION DOSE DELIVERED: 707.34mGy.cm Total DLP DATA REPOSITORY: All CT scans at this facility are submitted to the National Radiology Data Registry (NRDR) Dose Index Registry (DIR) with the [employer] (ACR). RADIATION OPTIMIZATION: All CT scans at this facility use at least one of these dose optimization te chniques: automated exposure control; mA and/or kV adjustment per patient size (includes targeted exa ms where dose is matched to clinical indication); or iterative reconstruction.
[2019-09-21] MEDS: diphenhydrAMINE 50 MG/ML VIAL IVP (15:42)
[2019-09-21] MEDS: Omnipaque 350 MG/ML 100 ML BTL IV (16:28)
[2019-09-21] MEDS: Normal Saline - Diluent 50 ML VIAL IV (16:31)
[2019-09-21 16:54] LABS: Lipase 49 U/L (73-393)
--- NOTE | 2019-09-21 17:18 | DI.VRAD_ITS ---
PROCEDURE INFORMATION: Exam: CT Angiography Chest With Contrast Exam date and time: 09/21/2019 3:35 PM Age: 49 years old Clinical indication: Abdominal pain; Localized; Right upper quadrant (ruq); Patient HX: Cough, SOB, ruq pain TECHNIQUE: Imaging protocol: Computed tomographic angiography of the chest with intravenous contrast. 3D rendering: MIP and/or 3D reconstructed images were created by the technologist. COMPARISON: CT Abdomen^ROUTINE ABDOMEN PELVIS WITH CONTRAST (Adult) 04/29/2018 1:55 PM FINDINGS: Limitations: Study is partially limited by motion artifact and streak artifact. Pulmonary arteries: Normal. No pulmonary emboli. Aorta: Visualized aorta appears unremarkable. Lungs: Lungs are partially obscured by respiratory motion artifact. No significant interstitial or airspace disease is grossly noted within the limits of this examination. Mild paraseptal emphysema suggested at the lung apices. Questionable mild centrilobular emphysema. Mild bilateral segmental bronchial wall thickening. Scattered areas of mucoid impaction in the right lower lobe segmental bronchi. Airways appear otherwise grossly patent. Pleural space: Unremarkable. No pneumothorax. No pleural effusion. Heart: Unremarkable. No cardiomegaly. No pericardial effusion. Lymph nodes: Unremarkable. No enlarged lymph nodes. Bones/joints: No acute abnormality or aggressive osseous lesion. Soft tissues: Unremarkable. IMPRESSION: No discrete evidence for acute thoracic pathology within the limits of this examination. PROCEDURE INFORMATION: Exam: CT Abdomen And Pelvis With Contrast Exam date and time: 09/21/2019 3:35 PM Age: 49 years old Clinical indication: Abdominal pain; Localized; Right upper quadrant (ruq); Patient HX: Cough, SOB, ruq pain TECHNIQUE: Imaging protocol: Computed tomography of the abdomen and pelvis with intravenous contrast. COMPARISON: CT Abdomen^ROUTINE ABDOMEN PELVIS WITH CONTRAST (Adult) 04/29/2018 1:55 PM FINDINGS: Liver: There is moderate enlargement of the liver. 7 mm hypodense lesion in the left hepatic lobe on image 338 series 12 is stable and most likely represents a benign cyst or small hemangioma. No follow-up is recommended at this time. No concerning liver lesions are appreciated. No acute liver pathology. Gallbladder and bile ducts: Stable diameter to the CBD without acute pathology identified. Gallbladder is hydropic. Pancreas: Normal. No ductal dilation. Spleen: Normal. No splenomegaly. Adrenals: Normal. No mass. Kidneys and ureters: Normal. No hydronephrosis. Stomach and bowel: Unremarkable. No obstruction. No mucosal thickening. Appendix: No evidence of appendicitis. Intraperitoneal space: Trace free fluid in the pelvis is nonspecific and most likely physiologic. No fluid collections. No pneumoperitoneum. Vasculature: Stable 5 mm calcification adjacent to the IVC on image 383 series 12 is nonspecific, but most probably chronic. No acute vascular pathology is identified. The vasculature demonstrates diffuse moderate atherosclerotic calcification. Lymph nodes: Unremarkable. No enlarged lymph nodes. Bladder: Unremarkable as visualized. Reproductive: There has been a hysterectomy. Bones/joints: No acute skeletal pathology. Mild multilevel degenerative changes of the spine, as manifested by multilevel anterior osteophytes and multilevel decrease in intervertebral disc space. Soft tissues: Unremarkable. IMPRESSION: Essentially stable examination without acute abdominopelvic pathology identified. Dictated and Authenticated by: Trevor Decker MD. Ordering:MALLIKA Reyna MD
--- NOTE | 2019-09-21 18:12 | NUR.NOTE ---
pt tolerating water and rajinder-terrence PO Nursing Note:
[2019-09-21] MEDS: Ondansetron O.D.T. 4 MG TABEF 12 MG PO (20:07)
[2019-09-23 11:03] LABS: Hepatitis A Antibody IgM Negative (Negative); Hepatitis B Core Antibody Negative (Negative); Hepatitis B surface Ag Negative (Negative); Hepatitis C Ab w Rflx HCV PCR Negative (Negative)
== END 2019-09-21 19:55 | disposition home or self-care (01) ==
PROVIDERS: Physician Assistant; Emergency Provider Physician Assistant; PCP Internal Medicine
DX: R74.8 Abnormal levels of other serum enzymes (principal); R11.2 Nausea with vomiting, unspecified; R06.02 Shortness of breath; R50.9 Fever, unspecified; E87.6 Hypokalemia; R07.81 Pleurodynia; J44.9 Chronic obstructive pulmonary disease, unspecified; F17.210 Nicotine dependence, cigarettes, uncomplicated
CPT/HCPCS: 36415; 71275; 74177; 80053; 83690; 86704; 86709; 86803; 87340; 93005; 96361; 96374; 96375; 99285; 71045; 81003; 81015; 83605; 85025; 85379; 93010; 99284; J1200; J2405; J3490

== ENCOUNTER 2019-09-22 08:56 | Outpatient (CLI) | payer MEDICAID, SELFPAY ==
[2019-09-25 00:17] LABS: SARS-CoV-2 RNA Undetected (Undetected); SARS-CoV-2 Specimen Source Nasopharynx
== END 2019-09-22 09:16 ==
PROVIDERS: PCP Internal Medicine; Visit Provider Physician Assistant
DX: Z11.59 Encounter for screening for other viral diseases (principal)
CPT/HCPCS: U0003

== ENCOUNTER 2019-12-24 02:52 | Outpatient (CLI) | payer MEDICAID, SELFPAY ==
[2019-12-24 17:33] LABS: ALT 20 U/L (14-59); AST 15 U/L (15-37); Albumin 4.1 g/dL (3.4-5.0); Alkaline Phosphatase 79 U/L (46-116); Bilirubin, Total 0.3 mg/dL (0.2-1.0)
== END 2019-12-24 03:12 ==
PROVIDERS: PCP Internal Medicine; Visit Provider Internal Medicine
DX: R94.5 Abnormal results of liver function studies (principal)
CPT/HCPCS: 36415; 80076

== ENCOUNTER 2020-02-01 20:59 | Outpatient (REF) | payer MEDICAID, SELFPAY ==
[2020-02-05 18:45] LABS: SARS-CoV-2 RNA Undetected (Undetected); SARS-CoV-2 Specimen Source Nasal
== END 2020-02-01 21:19 ==
LOC: NCHCN 20:59
PROVIDERS: PCP Internal Medicine; Visit Provider Internal Medicine
DX: Z11.59 Encounter for screening for other viral diseases (principal); J44.1 Chronic obstructive pulmonary disease with (acute) exacerbation
CPT/HCPCS: U0003

== ENCOUNTER 2020-05-20 12:32 | Emergency (ER) | payer MEDICAID, SELFPAY ==
[2020-05-20] VITALS (18 sets, daily range): BP systolic 75–114; BP diastolic 52–93; PULSE 88–125; RESP 18; TEMP 36.6; O2SAT 96–100
--- NOTE | 2020-05-20 12:45 | DI.CT_ITS ---
EXAM: CT ABDOMEN PELVIS WO CLINICAL HISTORY: Lower abdomen pain, hematochezia, allergic toIVdye. TECHNIQUE: Imaging Protocol: Axial computed tomography images with coronal and sagittal reformatted images were created and reviewed. Oral: yes COMPARISON: CT CT CHEST PE ABD PELVIS W from 09/21/2019 FINDINGS: Heart size is normal. The lung bases are clear. The liver, spleen, pancreas, gallbladder, adrenals and kidneys are unremarkable. The patient is status post hysterectomy. The bladder appears normal. There is no pelvic mass or adenopathy. No bowel dilatation or inflammatory changes are seen. Desce nding colon is not opacified with oral contrast. There is normal quantity of stool. There is no lorraine dence of diverticulosis. The appendix is not visualized. There is no free free air or free fluid. Aorta shows mild to degenerative disc changes are noted at L4-5. Moderate calcification but is mary l in diameter. IMPRESSION: Unremarkable CT scan of the abdomen and pelvis. RADIATION DOSE DELIVERED: 530.13mGy.cm Total DLP DATA REPOSITORY: All CT scans at this facility are submitted to the National Radiology Data Registry (NRDR) Dose Index Registry (DIR) with the [employer] (ACR). RADIATION OPTIMIZATION: All CT scans at this facility use at least one of these dose optimization te chniques: automated exposure control; mA and/or kV adjustment per patient size (includes targeted exa ms where dose is matched to clinical indication); or iterative reconstruction.
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
[2020-05-20] MEDS: Normal Saline 1,000 ML 1000 ML IV (13:28)
[2020-05-20] MEDS: Breeza Beverage 473 ML BTL PO ×2 (13:30→13:31)
[2020-05-20] MEDS: Omnipaque 350 MG/ML 50 ML BTL PO (13:31)
[2020-05-20 13:32] LABS: Abs Immature Grans 0.02 10^3/uL (0.0-0.06); Absolute Basophil Count 0.08 10^3/uL (0.0-0.2); Absolute Eosinophil Count 0.19 10^3/uL (0.0-0.7); Absolute Lymphocyte Count 2.71 10^3/uL (1.2-3.4); Absolute Monocyte Count 0.81 10^3/uL (0.1-0.8); Absolute Neutrophil Count 4.47 10^3/uL (1.2-6.7); Eosinophils % 2.3; HCT 39.5 % (36.0-46.0); HGB 13.2 g/dL (11.2-15.7); Immature Grans % 0.2; Lymphocytes % 32.7; MCHC 33.4 % (32.0-36.0); MCV 98.8 fL (80-95); MPV 10.4 fL (8.0-11.0); Monocytes % 9.8; Nucleated RBC 0 %; Platelet Count 279 10^3/uL (130-400); RDW 12.5 % (11.7-14.6); RDW-SD 45.5 fL; WBC 8.28 10^3/uL (4.4-10.8)
[2020-05-20 13:44] LABS: Lipase 79 U/L (73-393); Prothrombin Time 10.4 sec (9.3-11.0)
[2020-05-20 13:47] LABS: ALT 14 U/L (14-59); AST 14 U/L (15-37); Albumin 3.6 g/dL (3.4-5.0); Alkaline Phosphatase 87 U/L (46-116); Anion Gap 7.2 mmol/L (3-11); BUN 5 mg/dL (7-18); Bilirubin, Total 0.2 mg/dL (0.2-1.0); CO2 28.8 mmol/L (21.0-32.0); CREATININE 0.7 mg/dL (0.55-1.02); Calcium 8.7 mg/dL (8.5-10.1); Chloride 103 mmol/L (98-107); Glucose 62 mg/dL (74-106); Potassium 3.8 mmol/L (3.5-5.1); Sodium 139 mmol/L (136-145)
[2020-05-20] MEDS: Acetaminophen 500 MG TAB 1000 MG PO (13:51)
[2020-05-20] MEDS: oxyCODONE 5 MG TAB PO (13:52)
--- NOTE | 2020-05-20 15:18 | NUR.NOTE ---
Nursing Note: referal faxeed to general surgery for follow up for bloody stool in two weeks 05/20/20
== END 2020-05-20 15:30 | disposition home or self-care (01) ==
PROVIDERS: Emergency Provider Emergency Medicine; PCP Internal Medicine
DX: K92.1 Melena (principal); R10.30 Lower abdominal pain, unspecified; Z63.4 Disappearance and death of family member; J44.9 Chronic obstructive pulmonary disease, unspecified; F17.210 Nicotine dependence, cigarettes, uncomplicated
CPT/HCPCS: 80053; 83690; 86850; 86900; 86901; 96360; 99285; 74176; 85025; 85610; 99284; Q9967

== ENCOUNTER 2020-06-06 11:26 | Emergency (ER) | payer MEDICAID, SELFPAY ==
[2020-06-06 11:33] VITALS: BP 117/77; PULSE 118; RESP 20; TEMP 36.6; O2SAT 95
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
[2020-06-06] MEDS: Bupivacaine 0.5% Pres-Free 30 ML VIAL (12:15)
[2020-06-06] MEDS: diphenhydrAMINE 50 MG/ML VIAL IVP (12:30)
[2020-06-06 12:32] LABS: Abs Immature Grans 0.04 10^3/uL (0.0-0.06); Absolute Basophil Count 0.07 10^3/uL (0.0-0.2); Absolute Eosinophil Count 0.18 10^3/uL (0.0-0.7); Absolute Lymphocyte Count 2.23 10^3/uL (1.2-3.4); Absolute Monocyte Count 1.21 10^3/uL (0.1-0.8); Absolute Neutrophil Count 8.59 10^3/uL (1.2-6.7); Basophils % 0.6; Eosinophils % 1.5; HCT 42.9 % (36.0-46.0); HGB 14.5 g/dL (11.2-15.7); Immature Grans % 0.3; Lymphocytes % 18.1; MCH 33.6 pg (27.0-33.0); MCHC 33.8 % (32.0-36.0); MCV 99.3 fL (80-95); MPV 10.5 fL (8.0-11.0); Monocytes % 9.8; Neutrophils % 69.7; Nucleated RBC 0 %; Platelet Count 289 10^3/uL (130-400); RBC 4.32 10^6/uL (3.93-5.22); RDW 12.5 % (11.7-14.6); WBC 12.32 10^3/uL (4.4-10.8)
[2020-06-06 12:44] LABS: ALT 26 U/L (14-59); AST 19 U/L (15-37); Albumin 4.1 g/dL (3.4-5.0); Alkaline Phosphatase 106 U/L (46-116); Anion Gap 8.6 mmol/L (3-11); BUN 10 mg/dL (7-18); Bilirubin, Total 0.5 mg/dL (0.2-1.0); CO2 27.4 mmol/L (21.0-32.0); CREATININE 0.6 mg/dL (0.55-1.02); Calcium 8.7 mg/dL (8.5-10.1); Chloride 103 mmol/L (98-107); Glucose 85 mg/dL (74-106); Potassium 3.7 mmol/L (3.5-5.1); Sodium 139 mmol/L (136-145); Total Protein 8.3 g/dL (6.4-8.2)
[2020-06-06] MEDS: Omnipaque 350 MG/ML 100 ML BTL IJ (12:53)
[2020-06-06] MEDS: Normal Saline - Diluent 50 ML VIAL IV (12:54)
[2020-06-06] MEDS: Normal Saline Flush 10 ML SYR IVP (12:54)
--- NOTE | 2020-06-06 12:55 | DI.CT_ITS ---
EXAM: CT HEAD WO/W FACIAL W CLINICAL HISTORY: Right sided facial swelling, Dental abscess, Fever. TECHNIQUE: Imaging Protocol: Axial computed tomography images with coronal and sagittal reformatted images were created and reviewed. CONTRAST MATERIAL: Intravenous: Omnipaque 350 Contrast volume:100 ml Contrast route:IV - Patient was pre-medicated with Benadryl prior to the exam. Previous history of nausea following IV c ontrast. COMPARISON: MR MR brain wo from 05/22/2018 FINDINGS: Head CT: Ventricles and Extra axial spaces: Normal in size and morphology for the patient's age. Hemorrhage: None. Cerebral parenchyma: Normal. Enhancement: No suspicious enhancement. Unremarkable [place] vasculature. Midline shift: None. Brainstem/Cerebellum: Low lying cerebellar tonsils are again noted and appear unchanged. Resection o f a small portion of the inferior midline posterior fossa is again noted. Visualized Paranasal sinuses: Mucous retention right maxillary sinus. Mucosal thickening left maxill anahy and ethmoid sinuses./Mastoids: Clear. Facial CT: There is abnormal lucency in the right maxillary 2nd premolar with adjacent bony destructi on. There is communication with the floor of the right maxillary sinus. There is also an adjacent a bscess measuring 9 x 7 millimeters seen lateral to the tooth. No additional abscesses are identified . Multiple teeth have been extracted. The orbits are unremarkable. The parotid, submandibular glan ds are unremarkable. IMPRESSION: Postsurgical changes of the posterior fossa. Chiari 1 malformation. Dental abscess measuring 9 millimeters around the right maxillary 2nd premolar.. RADIATION DOSE DELIVERED: 1,572.83mGy.cm Total DLP DATA REPOSITORY: All CT scans at this facility are submitted to the National Radiology Data Registry (NRDR) Dose Index Registry (DIR) with the [employer] (A[employer]). RADIATION OPTIMIZATION: All CT scans at this facility use at least one of these dose optimization te chniques: automated exposure control; mA and/or kV adjustment per patient size (includes targeted exa ms where dose is matched to clinical indication); or iterative reconstruction.
[2020-06-06] MEDS: CLINDAMYCIN 600 MG/50 ML BAG 100 MG IVPB (13:15)
[2020-06-06] MEDS: fentaNYL 100 MCG/2 ML VIAL 25 MCG IVP (13:30)
[2020-06-06 13:49] VITALS: BP 122/81; PULSE 104; TEMP 37.1; O2SAT 95
[2020-06-06] MEDS: Benzocaine 20% Gel 30 GM JAR MM (14:00)
[2020-06-06] MEDS: Acetaminophen 500 MG TAB (14:01)
== END 2020-06-06 14:09 | disposition home or self-care (01) ==
PROVIDERS: Emergency Provider Registered Nurse Emergency; PCP Internal Medicine
DX: L03.212 Acute lymphangitis of face (principal); K04.7 Periapical abscess without sinus
CPT/HCPCS: 36415; 41800; 80053; 87040; 87081; 96365; 96375; 99284; 70470; 70487; 85025; 87070; 87205; 99281; J1200; J3010; J3490

== ENCOUNTER 2020-09-08 15:27 | Outpatient (REF) | payer MEDICAID, SELFPAY ==
[2020-09-10 13:55] LABS: COVID-19 RT-PCR UVMMC Result Negative (Negative)
== END 2020-09-08 15:28 | disposition home or self-care (01) ==
LOC: NCHCN 15:27
PROVIDERS: PCP Internal Medicine; Visit Provider Internal Medicine
DX: Z20.822 Contact with and (suspected) exposure to COVID-19 (principal)
CPT/HCPCS: U0003

== ENCOUNTER 2020-09-12 01:36 | Outpatient (CLI) | payer MEDICAID, SELFPAY ==
--- NOTE | 2020-09-12 14:02 | DI.RAD_ITS ---
Exam(s) XR RIBS RT W PA LAT CHEST EXAM: XR RIBS RT W PA LAT CHEST CLINICAL HISTORY: CHEST WALL PAIN, R07.89 TECHNIQUE: 2D digital imaging was performed. COMPARISON: CR XR PORTABLE CHEST AP from 09/21/2019 FINDINGS: There are no obvious acute rib fractures evident. No lytic rib lesions identified. No lung contusion or pneumothorax. There is no pleural effusion evident. Heart size is normal and there is no significant mediastinal widening. IMPRESSION: 1. No rib fractures evident. Also no obvious rib lesions. 2. No ipsilateral lung nor pleural abnormality evident. No pneumothorax. DATA REPOSITORY: RADIATION DOSE DELIVERED:
== END 2020-09-12 01:56 ==
PROVIDERS: PCP Internal Medicine; Visit Provider Internal Medicine
DX: R07.89 Other chest pain (principal)
CPT/HCPCS: 71046; 71100

== ENCOUNTER 2020-10-26 02:36 | Outpatient (CLI) | payer MEDICAID, SELFPAY ==
--- NOTE | 2020-10-26 | DI.MRI_ITS ---
Exam(s) MR LUMBAR SPINE WO EXAM: MR LUMBAR SPINE WO CLINICAL HISTORY: BACK PAIN WITH RADICULOPATHY,M54.16. TECHNIQUE: Multiplanar multisequence MRI of the Lumbar spine was performed. No plain films available time this MRI interpretation. COMPARISON: MR MRI - LUMBAR SPINE WO CONTRAST from 12/15/2013 MR MRI - LUMBAR SPINE WO CONTRAST from 12/15/2013 FINDINGS: Numbering of the levels will be to coincide with the prior study of November 2013. Conus medullaris is at normal level. There is no evidence of conus mass nor subjacent clumping of in trathecal nerve roots to suggest arachnoiditis. The distal thecal sac appears unremarkable.There is no evidence of Tarlov intrasacral cysts nor other significant findings within the sacral canal Bones:There are no fractures nor ominous osseous lesions in the lumbar vertebral bodies and visualize d sacrum. 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 With respect to the individual levels... T12-L1: Unremarkable L1-2: Normal disc height and signal. No disc herniation nor central canal stenosis.No foraminal steno sis L2-3: At this level there is been slight disc height loss. There is some annular bulging which is rel atively symmetrical, perhaps slightly more so on the left side. There is flattening of the thecal sac by the broad annular bulging and mild central spinal canal stenosis, not previously evident in 2014. No significant foraminal stenosis. No significant facet arthropathy. L3-4: Minimal disc height loss. There is now symmetrical annular bulging slightly flattens the anteri or aspect thecal sac and central canal dimensions are lower normal, but have somewhat diminished when compared to 2014 study.Lateral left there is annular tear in the exiting left neural foramen but wit hout a prominent disc herniation this level at this time.No significant foraminal stenosis on either side. No facet arthropathy. No ligamentum flavum hypertrophy L4-5: Mild decreased disc height again noted at this level. Mild central subligamentous annular bulgi ng, slightly more so than previous with only minimal indentation of the anterior thecal sac. There is no large disc herniation. No central canal stenosis nor significant foraminal stenosis on either sandra e at this level. No facet arthropathy. L5-S1: Sacralized L5 segment again noted with diminished disc space. No disc herniation or central ca nal stenosis. No foraminal stenosis. Soft tissues: paraspinal soft tissues appear unremarkable. IMPRESSION: 1. Compared to the prior MRI scan of 2013 there are now mild findings at L2-3, L3-4, and L4-5 levels. Mild central canal narrowing has occurred at L3-4 level. Nevertheless, there is no prominent central canal stenosis. There is no foraminal stenosis on either side in the lumbar spine 2. Minimal facet degenerative changes. 3. Benign hemangioma again noted in the right side of T12 vertebral body DATA REPOSITORY:
== END 2020-10-26 02:56 ==
PROVIDERS: PCP Internal Medicine; Visit Provider Internal Medicine
DX: M47.26 Other spondylosis with radiculopathy, lumbar region (principal); M48.061 Spinal stenosis, lumbar region without neurogenic claudication; D18.09 Hemangioma of other sites
CPT/HCPCS: 72148

== ENCOUNTER 2021-05-02 22:38 | Outpatient (CLI) | payer MEDICAID, SELFPAY ==
--- NOTE | 2021-05-02 14:30 | DI.RAD_ITS ---
Exam(s) XR CHEST 2V PA LATERAL EXAM: XR CHEST 2V PA LATERAL CLINICAL HISTORY: Productive Cough, COPD, R05.8, J44.9 TECHNIQUE: 2D digital imaging was performed of the chest. Two images were obtained. PA and lateral views were obtained. COMPARISON: CR XR CHEST 2V PA LATERAL from 03/10/2019 CR XR RIBS RT W PA LAT CHEST from 09/12/2020 FINDINGS: MEDIASTINUM: Normal. HEART: Normal. PULMONARY VASCULATURE: Normal. LUNGS: Clear. The lungs are hyperinflated suggesting underlying COPD. PLEURAL SPACE: No pleural effusion or pneumothorax. BONE:Within normal limits for the patient's age. OTHER FINDINGS:Normal. IMPRESSION: 1. No acute pulmonary findings. 2. Results of this exam have been verbally communicated with provider. DATA REPOSITORY: RADIATION DOSE DELIVERED:
== END 2021-05-02 22:58 ==
PROVIDERS: PCP Internal Medicine; Visit Provider Surgery
DX: R05.8 Other specified cough (principal); J44.9 Chronic obstructive pulmonary disease, unspecified
CPT/HCPCS: 71046

== ENCOUNTER 2021-06-02 01:21 | Outpatient (CLI) | payer MEDICAID, SELFPAY | END 2021-06-02 01:22 | disposition home or self-care (01) | LOC: RT 01:21 | PROVIDERS: PCP Internal Medicine; Visit Provider Student in an Organized Health Care Education/Training Program ==

== ENCOUNTER 2021-08-01 18:41 | Outpatient (REF) | payer MEDICAID, SELFPAY ==
[2021-08-07 11:21] LABS: Alpha 1 Antitrypsin,Serum 142 mg/dL (90-200)
== END 2021-08-01 18:42 | disposition home or self-care (01) ==
LOC: NCHCN 18:41
PROVIDERS: PCP Internal Medicine; Visit Provider Internal Medicine
DX: J44.1 Chronic obstructive pulmonary disease with (acute) exacerbation (principal); Z14.8 Genetic carrier of other disease
CPT/HCPCS: 82103; 82104

== ENCOUNTER 2022-03-23 09:16 | Emergency (ER) | payer MEDICAID, SELFPAY ==
[2022-03-23 09:22] VITALS: BP 114/86; PULSE 119; RESP 24; TEMP 36.5; O2SAT 96
--- NOTE | 2022-03-23 09:45 | RT.EKG_ITS ---
APPROVED REPORT Exam: Resting ECG Reason for Exam: shortness of breath Patient Location: E HR:101 bpm ECG Measurements Heart Rate 101 AXIS WI 146 P 82 QRSd 87 QRS 69 QT 376 T 61 QTc 487 Conclusion Sinus tachycardia...rate> 99 Left atrial enlargement...P, P'>60mS, <-0.15mV V1. Sinus. Normal axis. No STEMI. I have reviewed and interpreted ECG and agree with software generated interpretation.
[2022-03-23 10:12] LABS: COVID-19 PCR Negative (Negative); Influenza A PCR Negative (Negative); Influenza B PCR Negative (Negative); RSV PCR Negative (Negative)
[2022-03-23 10:14] LABS: Source Nasopharynx
[2022-03-23 10:16] LABS: Lactate 2.3 mmol/L (0.6-1.4)
[2022-03-23 10:28] VITALS: RESP 2; RESP 4
[2022-03-23] MEDS: Albuterol/Ipratropium 3 ML UPD VIAL UPD (10:28)
[2022-03-23] MEDS: methylPREDNISolone SUCC 125 MG VIAL IVP (10:29)
[2022-03-23 10:30] LABS: ALT 39 U/L (14-59); AST 47 U/L (15-37); Albumin 4.1 g/dL (3.4-5.0); Alkaline Phosphatase 107 U/L (46-116); Anion Gap 8.8 mmol/L (3-11); BUN 6 mg/dL (7-18); Bilirubin, Total 0.4 mg/dL (0.2-1.0); CO2 30.2 mmol/L (21.0-32.0); CREATININE 0.8 mg/dL (0.55-1.02); Calcium 9.4 mg/dL (8.5-10.1); Chloride 106 mmol/L (98-107); Estimated GFR 89.15 (mL/min/1.73m2); Glucose 119 mg/dL (74-106); Lipase 129 U/L (73-393); Potassium 4.3 mmol/L (3.5-5.1); Sodium 145 mmol/L (136-145); Total Protein 7.7 g/dL (6.4-8.2)
[2022-03-23] MEDS: Normal Saline 1,000 ML 1000 ML IV (10:30)
[2022-03-23 10:55] LABS: Abs Immature Grans 0.03 10^3/uL (0.0-0.06); Absolute Basophil Count 0.07 10^3/uL (0.0-0.2); Absolute Eosinophil Count 0.02 10^3/uL (0.0-0.7); Absolute Lymphocyte Count 1.68 10^3/uL (1.2-3.4); Absolute Monocyte Count 0.68 10^3/uL (0.1-0.8); Basophils % 0.6; Eosinophils % 0.2; HGB 13.9 g/dL (11.2-15.7); Immature Grans % 0.3; Lymphocytes % 15.2; MCH 32.9 pg (27.0-33.0); MCHC 33.1 % (32.0-36.0); MCV 100 fL (80-95); MPV 11.1 fL (8.0-11.0); Monocytes % 6.1; Neutrophils % 77.6; Platelet Count 285 10^3/uL (130-400); RBC 4.22 10^6/uL (3.93-5.22); RDW 13.2 % (11.7-14.6); RDW-SD 48.4 fL; WBC 11.08 10^3/uL (4.4-10.8)
--- NOTE | 2022-03-23 11:32 | DI.CT_ITS ---
Exam(s) CT CHEST/ABD/PEL WO EXAM: CT CHEST/ABD/PEL WO CLINICAL HISTORY: abdominal pain, hematochezia, weightloss, shortnes TECHNIQUE: Imaging Protocol: Axial computed tomography images with coronal and sagittal reformatted images were created and reviewed COMPARISON: CT ABD PELVIS WITH CONTRAST from 03/31/2015 CT CHEST WITHOUT CONTRAST from 07/10/[address] ABDOMEN PELVIS WO from 05/20/2020 FINDINGS: CHEST: Tracheobronchial tree: Patent where visualized. Pulmonary parenchyma: Emphysematous changes are present in the lungs. There are calcified granuloma in the lungs. No focal consolidating infiltrates are present. No architectural distortion. Mediastinum and Yolie: No dominant adenopathy or fluid collection. The esophagus is unremarkable. Ther e is a stable 1 cm hypodense nodule to the right of the trachea at the level of the thyroid gland. T his may represent a thyroid nodule or small lymph node. It is unchanged compared to 2018. Thyroid gland: Unremarkable. Pleura: No effusion or pneumothorax. Heart: The heart is not dilated. No coronary artery calcifications are seen. No pericardial effusion. Aorta: Thoracic aorta non-dilated. There is mild atherosclerosis. Lymph nodes: Within normal limits. Bones:Within normal limits for the patient's age. Soft tissues: Unremarkable. ABDOMEN: Liver: There is an area of decreased attenuation in the left lobe of the liver measuring 3.1 x 3.2 x 6.6 cm. This was not present on prior examinations. Gallbladder and Biliary Tract: No radiodense calculus or dilation. Pancreas: Normal density, no abnormal calcifications or inflammatory process. Spleen: Normal. Adrenals: There is stable thickening of the limbs of the left adrenal gland. The right adrenal gland is unremarkable. No discrete renal mass is seen. Kidneys: Normal size, contour and axis. No radiodense stones or obstructive uropathy. No masses seen. Abdominal Aorta: Abdominal portion non-dilated. Atherosclerosis is present. Bowel: There are moderately dilated loops of duodenum and proximal jejunum. There is a transition se en in the mid small bowel without discrete mass identified at this time. The distal small bowel is o f normal caliber as is the colon. No evidence of appendicitis. Peritoneal Cavity: No ascites, collection or mesenteric inflammatory response. No free air. Lymph Nodes: Within normal limits. Bones: Within normal limits for the patient's age. Soft Tissues: Unremarkable. PELVIS: Bladder: Symmetric distention, no gross wall thickening. Reproductive Organs: Status post hysterectomy. Lymph Nodes: Within normal limits. Bones: Within normal limits for the patient's age. IMPRESSION: 1. 3.1 x 3.2 x 6.6 cm area of decreased attenuation in the left lobe of the liver. A primary hepatic neoplasm or metastatic disease should be excluded in this patient. An MRI without and with contrast should be considered if the patient is unable to have a contrast CT scan. 2. No acute pulmonary process. 3. Moderately dilated loops of proximal small bowel with a transition seen in the mid small bowel. E jacqueline small bowel obstruction should be considered in this patient. Please correlate with patient's c linical symptoms. 4. Findings discussed with the emergency department on the date of the examination. RADIATION DOSE DELIVERED: 852.23mGy.cm Total DLP 852.23mGy.cm Total DLP DATA REPOSITORY: All CT scans at this facility are submitted to the National Radiology Data Registry (NRDR) Dose Index Registry (DIR) with the [employer] ([employer]). RADIATION OPTIMIZATION: All CT scans at this facility use at least one of these dose optimization te chniques: automated exposure control; mA and/or kV adjustment per patient size (includes targeted exa ms where dose is matched to clinical indication); or iterative reconstruction.
[2022-03-23] MEDS: oxyCODONE 5 MG TAB PO (13:19)
[2022-03-23 13:57] LABS: Lactate 2.5 mmol/L (0.6-1.4)
[2022-03-23 14:31] LABS: Bilirubin Negative (Negative); Blood Trace-intact (Negative); Clarity Clear (Clear); Glucose Negative (Negative); Ketones Negative (Negative); Leukocyte Esterase Negative (Negative); Nitrite Negative (Negative); Urobilinogen 0.2 EU/dL (Up TO 0.2); pH 7.5 (5-8)
[2022-03-23 14:37] LABS: Bacteria Negative HPF (Negative); C & S Indicated? No; Casts 0-2 Hyaline LPF (Negative); Crystals Negative HPF (Negative); Epithelial Cells Few HPF (Negative); Mucus Trace (Negative); WBC Negative HPF (0-5)
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
[2022-03-23 14:52] VITALS: BP 124/92; PULSE 116; RESP 19; TEMP 37.1; O2SAT 95
== END 2022-03-23 15:00 | disposition home or self-care (01) ==
PROVIDERS: Physician Assistant; Emergency Provider Physician Assistant; PCP Internal Medicine
DX: J40 Bronchitis, not specified as acute or chronic (principal); R16.0 Hepatomegaly, not elsewhere classified; J43.9 Emphysema, unspecified; Z79.52 Long term (current) use of systemic steroids; Z20.822 Contact with and (suspected) exposure to COVID-19
CPT/HCPCS: 36410; 36416; 71250; 80053; 82962; 83690; 86850; 86900; 86901; 87040; 87637; 93005; 96361; 96374; 99284; 74176; 81003; 81015; 83605; 85025; 93010; 99285; J2930; J7620

== ENCOUNTER 2022-03-30 00:31 | Outpatient (CLI) | payer MEDICAID, SELFPAY ==
--- NOTE | 2022-03-30 | DI.MRI_ITS ---
Exam(s) MR ABDOMEN WO/W EXAM: MR ABDOMEN WO/W CLINICAL HISTORY: F/U ABNL CT, LIVER LESION,K76.9,R91.8 TECHNIQUE: Multiplanar multisequence MRI of the Abdomen was performed. CONTRAST MATERIAL: IV Contrast: 10 mL of Dotarem contrast administered. CT CT CHEST PE ABD PELVIS W from 09/21/[address] ABDOMEN PELVIS WO from 05/20/[address] CHEST/ABD/PEL WO from 03/23/2022 FINDINGS: Liver: A focal low-attenuation lesion was seen on recent CT in the left lobe. This area follows fat s ignal on all sequences and shows no evidence of postcontrast enhancement. The vessels course normally through the area. Pancreas: Unremarkable. Gallbladder and Bile Ducts: Unremarkable. Adrenals: Unremarkable. Kidneys: Unremarkable. Spleen: Unremarkable. Aorta: Unremarkable. Soft Tissues: Unremarkable. Bone: Unremarkable. Lymph Nodes: Unremarkable. IMPRESSION: An area of focal fatty infiltration corresponds to the abnormality seen on CT. There are no suspiciou s findings. DATA REPOSITORY:
[2022-03-30] MEDS: Gadoterate meglumine 20 ML VIAL IVP (11:32)
== END 2022-03-30 00:51 ==
LOC: DI 00:31
PROVIDERS: PCP Internal Medicine; Visit Provider Internal Medicine
DX: K76.89 Other specified diseases of liver (principal)
CPT/HCPCS: 74183

== ENCOUNTER 2022-06-06 14:28 | Emergency (ER) | payer MEDICAID, SELFPAY ==
[2022-06-06] VITALS (49 sets, daily range): BP systolic 101–141; BP diastolic 70–117; PULSE 92–131; RESP 11–27; TEMP 36.9; O2SAT 96–97
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
[2022-06-06 17:44] LABS: Abs Immature Grans 0.03 10^3/uL (0.0-0.06); Absolute Basophil Count 0.08 10^3/uL (0.0-0.2); Absolute Eosinophil Count 0.34 10^3/uL (0.0-0.7); Absolute Lymphocyte Count 3.22 10^3/uL (1.2-3.4); Absolute Monocyte Count 0.83 10^3/uL (0.1-0.8); Absolute Neutrophil Count 4.22 10^3/uL (1.2-6.7); Basophils % 0.9; Eosinophils % 3.9; HCT 37.8 % (36.0-46.0); HGB 12.5 g/dL (11.2-15.7); Immature Grans % 0.3; Lymphocytes % 36.9; MCH 33.4 pg (27.0-33.0); MCHC 33.1 % (32.0-36.0); MCV 101 fL (80-95); MPV 10.2 fL (8.0-11.0); Monocytes % 9.5; Neutrophils % 48.5; Platelet Count 325 10^3/uL (130-400); RBC 3.74 10^6/uL (3.93-5.22); RDW 13.5 % (11.7-14.6); RDW-SD 50.3 fL; WBC 8.72 10^3/uL (4.4-10.8)
--- NOTE | 2022-06-06 17:45 | RT.EKG_ITS ---
APPROVED REPORT Exam: Resting ECG Reason for Exam: chest pain Patient Location: E HR:100 bpm ECG Measurements Heart Rate 100 AXIS NJ 133 P 78 QRSd 69 QRS 63 QT 365 T 55 QTc 470 Conclusion Sinus tachycardia...rate> 99 Left atrial enlargement...P, P'>60mS, <-0.15mV V1 sinus tachycardia, normal axis, normal intervals, non ischemic
[2022-06-06] MEDS: Normal Saline 1,000 ML 1000 ML IV (17:46)
[2022-06-06] MEDS: Tranexamic Acid 1,000 MG/10 ML VIAL 1000 MG IVP (17:50)
[2022-06-06 17:59] LABS: PTT Activated 24.2 sec (21.5-31.9); Prothrombin Time 9.9 sec (9.3-11.0)
--- NOTE | 2022-06-06 18:00 | DI.CT_ITS ---
Exam(s) CT ABDOMEN PELVIS WO EXAM: CT ABDOMEN PELVIS WO CLINICAL HISTORY: colonoscopy/endo, clipped polyp; rectal bleeding. TECHNIQUE: Imaging Protocol: Axial computed tomography images with coronal and sagittal reformatted images were created and reviewed. Oral: yes / no COMPARISON: CT CT CHEST/ABD/PEL WO from 03/23/2022 FINDINGS: ABDOMEN: Lung Bases: Normal where visualized. Liver: Stable area of focal fatty infiltration near the gallbladder fossa, otherwise normal density. No measurable mass. Gallbladder and biliary tract: No radiodense calculus or dilation. Pancreas: Normal density, no abnormal calcifications or inflammatory process. Spleen: Normal. Kidneys: Normal size, contour and axis. No radiodense stones or obstructive uropathy. No masses seen. Adrenal glands: No masses seen. Lymph nodes: Within normal limits. Abdominal Aorta: Abdominal portion non-dilated. [id number] atherosclerotic calcifications. PELVIS: Bladder: Symmetric distention, no gross wall thickening. Bowel: No focal colonic abnormality identified. No obstruction or bowel wall thickening. Peritoneal cavity: No ascites, collection or mesenteric inflammatory response. Reproductive organs: Status post hysterectomy. Bones: Mild degenerative changes in the spine. IMPRESSION: No acute abnormality RADIATION DOSE DELIVERED: 566.72mGy.cm Total DLP DATA REPOSITORY: All CT scans at this facility are submitted to the National Radiology Data Registry (NRDR) Dose Index Registry (DIR) with the [employer] ([employer]). RADIATION OPTIMIZATION: All CT scans at this facility use at least one of these dose optimization te chniques: automated exposure control; mA and/or kV adjustment per patient size (includes targeted exa ms where dose is matched to clinical indication); or iterative reconstruction.
[2022-06-06 18:03] LABS: ALT 56 U/L (14-59); AST 44 U/L (15-37); Albumin 3.6 g/dL (3.4-5.0); Alkaline Phosphatase 102 U/L (46-116); Anion Gap 7.5 mmol/L (3-11); BUN 5 mg/dL (7-18); Bilirubin, Total 0.3 mg/dL (0.2-1.0); CO2 30.5 mmol/L (21.0-32.0); CREATININE 0.6 mg/dL (0.55-1.02); Calcium 8.8 mg/dL (8.5-10.1); Chloride 106 mmol/L (98-107); Estimated GFR 107.93 (mL/min/1.73m2); Glucose 98 mg/dL (74-106); Potassium 4.2 mmol/L (3.5-5.1); Sodium 144 mmol/L (136-145); Total Protein 6.5 g/dL (6.4-8.2)
[2022-06-06] MEDS: Ondansetron 4 MG/2 ML VIAL IVP (18:06)
--- NOTE | 2022-06-06 19:25 | DI.VRAD_ITS ---
PROCEDURE INFORMATION: Exam: CT Abdomen And Pelvis Without Contrast Exam date and time: 06/06/2022 7:03 PM Age: 52 years old Clinical indication: Other: Colonoscopy/ endo, clipped polp, rectal bleeding TECHNIQUE: Imaging protocol: Computed tomography of the abdomen and pelvis without contrast. COMPARISON: MR ABDOMEN WO/W 03/30/2022 11:20 AM FINDINGS: Liver: Hypodense lesion in the liver adjacent to the gallbladder fossa grossly stable in keeping with focal fatty infiltration as previously noted on MRI Gallbladder and bile ducts: Normal. No calcified stones. No ductal dilation. Pancreas: Normal. No ductal dilation. Spleen: Normal. No splenomegaly. Adrenal glands: Normal. No mass. Kidneys and ureters: Normal. No hydronephrosis. Stomach and bowel: Unremarkable. No obstruction. No mucosal thickening. Appendix: No evidence of appendicitis. Intraperitoneal space: Unremarkable. No free air. No significant fluid collection. Vasculature: Atherosclerosis. No abdominal aortic aneurysm. Lymph nodes: Unremarkable. No enlarged lymph nodes. Urinary bladder: Unremarkable as visualized. Reproductive: Unremarkable as visualized. Bones/joints: Unremarkable. No acute fracture. Soft tissues: Unremarkable. IMPRESSION: No acute findings. Grossly stable focal fatty infiltration in the liver as previously visualized Dictated and Authenticated by: Harley Pickens MD. Ordering:ZAIDA Rojas MD
[2022-06-06] MEDS: clonazePAM 0.5 MG TAB PO (20:57)
--- NOTE | 2022-06-07 07:51 | NUR.NOTE ---
Nursing Note: Accessed chart to determine orders for EKG and to determine whether or not one needs to be cancelled.
== END 2022-06-06 23:18 | disposition short-term general hospital (02) ==
PROVIDERS: Emergency Provider Emergency Medicine; PCP Internal Medicine
DX: K92.1 Melena (principal); R00.0 Tachycardia, unspecified; J44.9 Chronic obstructive pulmonary disease, unspecified; Z79.51 Long term (current) use of inhaled steroids
CPT/HCPCS: 36415; 80053; 86850; 86900; 86901; 93005; 96361; 96374; 96375; 99285; 74176; 85025; 85610; 85730; 93010; J2405

== ENCOUNTER 2022-06-25 02:27 | Outpatient (CLI) | payer MEDICAID, SELFPAY ==
[2022-06-25 13:16] LABS: HCT 37.2 % (36.0-46.0); HGB 12.3 g/dL (11.2-15.7); MCH 33.3 pg (27.0-33.0); MCHC 33.1 % (32.0-36.0); MCV 101 fL (80-95); Platelet Count 315 10^3/uL (130-400); RBC 3.69 10^6/uL (3.93-5.22); RDW 13.2 % (11.7-14.6); RDW-SD 49.1 fL; WBC 9.01 10^3/uL (4.4-10.8)
[2022-06-25 14:47] LABS: ALT 32 U/L (14-59); AST 29 U/L (15-37); Albumin 3.8 g/dL (3.4-5.0); Alkaline Phosphatase 101 U/L (46-116); Anion Gap 8.5 mmol/L (3-11); BUN 10 mg/dL (7-18); Bilirubin, Total 0.3 mg/dL (0.2-1.0); CO2 28.5 mmol/L (21.0-32.0); CREATININE 0.7 mg/dL (0.55-1.02); Calcium 9.1 mg/dL (8.5-10.1); Chloride 100 mmol/L (98-107); Glucose 116 mg/dL (74-106); Potassium 3.4 mmol/L (3.5-5.1); Sodium 137 mmol/L (136-145); Total Protein 7.2 g/dL (6.4-8.2)
== END 2022-06-25 02:28 | disposition home or self-care (01) ==
LOC: LBO 02:28
PROVIDERS: PCP Internal Medicine; Visit Provider Internal Medicine
DX: K62.5 Hemorrhage of anus and rectum (principal)
CPT/HCPCS: 36415; 80053; 85027

== ENCOUNTER 2022-07-27 14:38 | Outpatient (CLI) | payer MEDICAID, SELFPAY ==
[2022-07-27 14:55] LABS: Abs Immature Grans 0.02 10^3/uL (0.0-0.06); Absolute Eosinophil Count 0.39 10^3/uL (0.0-0.7); Absolute Lymphocyte Count 2.54 10^3/uL (1.2-3.4); Absolute Monocyte Count 0.74 10^3/uL (0.1-0.8); Absolute Neutrophil Count 4.09 10^3/uL (1.2-6.7); Basophils % 1.3; Eosinophils % 4.9; HCT 39.8 % (36.0-46.0); HGB 13.4 g/dL (11.2-15.7); Immature Grans % 0.3; Lymphocytes % 32.2; MCH 33.2 pg (27.0-33.0); MCHC 33.7 % (32.0-36.0); MCV 99 fL (80-95); MPV 9.7 fL (8.0-11.0); Monocytes % 9.4; Neutrophils % 51.9; Platelet Count 291 10^3/uL (130-400); RBC 4.04 10^6/uL (3.93-5.22); RDW 12.2 % (11.7-14.6); RDW-SD 44.5 fL; WBC 7.88 10^3/uL (4.4-10.8)
[2022-07-27 15:15] LABS: ALT 23 U/L (14-59); AST 20 U/L (15-37); Albumin 4.3 g/dL (3.4-5.0); Alkaline Phosphatase 113 U/L (46-116); Anion Gap 7.4 mmol/L (3-11); BUN 9 mg/dL (7-18); Bilirubin, Total 0.3 mg/dL (0.2-1.0); CO2 28.6 mmol/L (21.0-32.0); CREATININE 0.7 mg/dL (0.55-1.02); Calcium 9.4 mg/dL (8.5-10.1); Chloride 101 mmol/L (98-107); Glucose 117 mg/dL (74-106); Potassium 3.4 mmol/L (3.5-5.1); Sodium 137 mmol/L (136-145); Total Protein 7.9 g/dL (6.4-8.2)
== END 2022-07-27 14:39 | disposition home or self-care (01) ==
LOC: LBO 14:38
PROVIDERS: PCP Internal Medicine; Visit Provider Internal Medicine
DX: Z87.898 Personal history of other specified conditions (principal)
CPT/HCPCS: 36415; 80053; 87040; 85025

== ENCOUNTER 2022-09-21 11:22 | Emergency (ER) | payer MEDICAID, SELFPAY ==
[2022-09-21] VITALS (22 sets, daily range): BP systolic 112–134; BP diastolic 75–101; PULSE 102–126; RESP 11–28; TEMP 36.8; O2SAT 88–100
--- NOTE | 2022-09-21 11:15 | RT.EKG_ITS ---
APPROVED REPORT Exam: Resting ECG Reason for Exam: Dyspnea Patient Location: E HR:117 bpm ECG Measurements Heart Rate 117 AXIS NV 126 P 79 QRSd 75 QRS 55 QT 331 T 37 QTc 463 Conclusion Sinus tachycardia...rate> 99
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
[2022-09-21 12:09] LABS: Absolute Lymphocyte Count 3.01 10^3/uL (1.2-3.4); Absolute Monocyte Count 1.61 10^3/uL (0.1-0.8); Basophils % 0.4; HCT 41.4 % (36.0-46.0); HGB 13.8 g/dL (11.2-15.7); Immature Grans % 0.5; Lymphocytes % 16.5; MCH 32.2 pg (27.0-33.0); MCHC 33.3 % (32.0-36.0); MCV 97 fL (80-95); Monocytes % 8.8; Neutrophils % 71.8; Platelet Count 259 10^3/uL (130-400); RBC 4.28 10^6/uL (3.93-5.22); RDW 13.1 % (11.7-14.6); RDW-SD 46.5 fL; WBC 18.25 10^3/uL (4.4-10.8)
[2022-09-21 12:13] LABS: Absolute Basophil Count 0.07 10^3/uL (0.0-0.2); Absolute Eosinophil Count 0.37 10^3/uL (0.0-0.7)
[2022-09-21] MEDS: Albuterol/Ipratropium 3 ML UPD VIAL UPD (12:17)
[2022-09-21] MEDS: Albuterol 2.5 MG/3 ML INH SOLN VIAL UPD (12:17)
[2022-09-21] MEDS: MAGNESIUM SULFATE 1 GM/100 ML BAG IVPB (12:17)
[2022-09-21 12:18] LABS: Anion Gap 9.4 mmol/L (3-11); BUN 7 mg/dL (7-18); CO2 29.6 mmol/L (21.0-32.0); CREATININE 0.7 mg/dL (0.55-1.02); Calcium 9.2 mg/dL (8.5-10.1); Chloride 101 mmol/L (98-107); Glucose 109 mg/dL (74-106); Potassium 3.9 mmol/L (3.5-5.1); Sodium 140 mmol/L (136-145)
[2022-09-21] MEDS: Normal Saline 1,000 ML 1000 ML IV (12:18)
[2022-09-21] MEDS: Water,Injection,Sterile 10 ML VIAL (12:18)
[2022-09-21] MEDS: methylPREDNISolone SUCC 125 MG VIAL IVP (12:18)
[2022-09-21 12:25] LABS: Diff Comment Diff Reviewed; RBC Morphology Normal
--- NOTE | 2022-09-21 12:51 | DI.RAD_ITS ---
Exam(s) XR CHEST 2V PA LATERAL EXAM: XR CHEST 2V PA LATERAL CLINICAL HISTORY: copd TECHNIQUE: 2D digital imaging was performed of the chest. Two images were obtained. PA and lateral views were obtained. COMPARISON: CR XR CHEST 2V PA LATERAL from 05/02/2021 FINDINGS: MEDIASTINUM: Normal. HEART: Normal. PULMONARY VASCULATURE: Normal. LUNGS: Clear. The lungs are hyperinflated with flattened diaphragms suggesting underlying COPD. PLEURAL SPACE: No pleural effusion or pneumothorax. BONE:Within normal limits for the patient's age. OTHER FINDINGS:Normal. IMPRESSION: No acute pulmonary findings. DATA REPOSITORY: RADIATION DOSE DELIVERED:
== END 2022-09-21 14:26 | disposition home or self-care (01) ==
PROVIDERS: Emergency Provider Emergency Medicine; PCP Internal Medicine
DX: J44.1 Chronic obstructive pulmonary disease with (acute) exacerbation (principal); R06.02 Shortness of breath; J45.909 Unspecified asthma, uncomplicated; F17.210 Nicotine dependence, cigarettes, uncomplicated
CPT/HCPCS: 80048; 93005; 96365; 96375; 99284; 71046; 85025; 93010; J2930; J3475; J7613; J7620

== ENCOUNTER 2022-10-25 19:08 | Outpatient (REF) | payer MEDICAID, SELFPAY ==
[2022-10-25 17:18] LABS: Abs Immature Grans 0.02 10^3/uL (0.0-0.06); Absolute Basophil Count 0.08 10^3/uL (0.0-0.2); Absolute Eosinophil Count 0.35 10^3/uL (0.0-0.7); Absolute Lymphocyte Count 2.44 10^3/uL (1.2-3.4); Absolute Monocyte Count 0.76 10^3/uL (0.1-0.8); Absolute Neutrophil Count 4.91 10^3/uL (1.2-6.7); Basophils % 0.9; Eosinophils % 4.1; HCT 38.2 % (36.0-46.0); HGB 12.6 g/dL (11.2-15.7); Immature Grans % 0.2; Lymphocytes % 28.5; MCV 100 fL (80-95); MPV 11.2 fL (8.0-11.0); Monocytes % 8.9; Neutrophils % 57.4; Platelet Count 296 10^3/uL (130-400); RBC 3.82 10^6/uL (3.93-5.22); RDW 13.7 % (11.7-14.6); RDW-SD 50.4 fL; WBC 8.56 10^3/uL (4.4-10.8)
[2022-10-25 17:34] LABS: ALT 28 U/L (14-59); AST 30 U/L (15-37); Alkaline Phosphatase 108 U/L (46-116); Anion Gap 7.8 mmol/L (3-11); BUN 7 mg/dL (7-18); Bilirubin, Total 0.3 mg/dL (0.2-1.0); CO2 30.2 mmol/L (21.0-32.0); CREATININE 0.7 mg/dL (0.55-1.02); Chloride 105 mmol/L (98-107); Glucose 98 mg/dL (74-106); Potassium 3.8 mmol/L (3.5-5.1); Sodium 143 mmol/L (136-145); Total Protein 7.2 g/dL (6.4-8.2)
== END 2022-10-25 19:09 | disposition home or self-care (01) ==
LOC: NCHCN 19:08
PROVIDERS: PCP Internal Medicine; Visit Provider Internal Medicine
DX: J44.9 Chronic obstructive pulmonary disease, unspecified (principal); K62.5 Hemorrhage of anus and rectum; K58.0 Irritable bowel syndrome with diarrhea; F11.20 Opioid dependence, uncomplicated; F32.9 Major depressive disorder, single episode, unspecified
CPT/HCPCS: 80053; 85025

== ENCOUNTER 2022-11-15 11:05 | Emergency (ER) | payer MEDICAID, SELFPAY ==
--- NOTE | 2022-11-15 11:00 | DI.RAD_ITS ---
Exam(s) XR KNEE LT 3V AP,LAT,JOSEPH EXAM: XR KNEE LT 3V AP,LAT,JOSEPH CLINICAL HISTORY: Left knee pain status post golf ball injury. TECHNIQUE: 2D digital imaging was performed. COMPARISON: No exams were available for comparison FINDINGS: 3 views There is soft tissue swelling medially but no evidence of acute fractureh nor joint effusion no degen erative changes evident. Incidentally noted is a sclerotic intramedullary bone lesion in the lower h tiara of the femur. This is possibly a bone infarct or enchondroma. IMPRESSION: 1. Medial soft tissue swelling. No fracture. No joint effusion. 2. Incidental note of a sclerotic intramedullary bone lesion in the lower half of the femur. 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 Correlation with medical history recommended. DATA REPOSITORY: RADIATION DOSE DELIVERED:
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
[2022-11-15 11:11] VITALS: BP 141/94; PULSE 124; RESP 16; TEMP 36.7; O2SAT 95
--- NOTE | 2022-11-15 12:29 | DI.CT_ITS ---
Exam(s) CT LOWER EXTREMITY LT WO EXAM: CT LOWER EXTREMITY LT WO CLINICAL HISTORY: Abnormal x-ray with sclerotic lesion lower femur. TECHNIQUE: Imaging Protocol: Axial computed tomography images with coronal and sagittal reformatted images were created and reviewed. CONTRAST MATERIAL: Intravenous: Omnipaque 350 Contrast volume:structured data in ml Contrast route:I V - Oral: yes / no COMPARISON: CR XR KNEE LT 3V AP,LAT,JOSEPH from 11/15/2022 FINDINGS: Mild soft tissue swelling seen medial aspect of the knee. There is no joint effusion. No fractures evident. Incidentally noted is a sclerotic bone lesion in the intramedullary cavity in the distal of the femor al diaphysis measuring approximately 3 cm length by 1.5 cm wide by 1 cm AP. This is probably bone in farct. IMPRESSION: No fractures or joint effusion. 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 RADIATION DOSE DELIVERED: 232.28mGy.cm Total DLP DATA REPOSITORY: All CT scans at this facility are submitted to the National Radiology Data Registry (NRDR) Dose Index Registry (DIR) with the [employer] (ACR). RADIATION OPTIMIZATION: All CT scans at this facility use at least one of these dose optimization te chniques: automated exposure control; mA and/or kV adjustment per patient size (includes targeted exa ms where dose is matched to clinical indication); or iterative reconstruction.
--- NOTE | 2022-11-15 13:45 | NUR.NOTE ---
Nursing Note: ORTHO REFERRAL
--- NOTE | 2022-11-15 13:48 | NUR.NOTE ---
Nursing Note: referral to primary
[2022-11-15 13:51] VITALS: BP 132/82; PULSE 108; RESP 18; O2SAT 96
[2022-11-15] MEDS: Acetaminophen 500 MG TAB 1000 MG PO (13:55)
--- NOTE | 2022-11-18 07:55 | NUR.NOTE ---
Nursing Note: Accessed patient chart to print provider note to be faxed to [facility] for billing purposes.
== END 2022-11-15 14:22 | disposition home or self-care (01) ==
PROVIDERS: Emergency Provider Emergency Medicine; PCP Internal Medicine
DX: M77.9 Enthesopathy, unspecified (principal); M25.562 Pain in left knee
CPT/HCPCS: 73562; 99283; 73700

== ENCOUNTER 2022-11-29 21:03 | Outpatient (REF) | payer MEDICAID, SELFPAY ==
[2022-11-29 21:04] LABS: Abs Immature Grans 0.05 10^3/uL (0.0-0.06); Absolute Basophil Count 0.07 10^3/uL (0.0-0.2); Absolute Eosinophil Count 0.22 10^3/uL (0.0-0.7); Absolute Lymphocyte Count 2.95 10^3/uL (1.2-3.4); Absolute Monocyte Count 1.03 10^3/uL (0.1-0.8); Absolute Neutrophil Count 5.98 10^3/uL (1.2-6.7); Basophils % 0.7; Eosinophils % 2.1; HCT 42.2 % (36.0-46.0); HGB 14.4 g/dL (11.2-15.7); Immature Grans % 0.5; Lymphocytes % 28.6; MCH 33.7 pg (27.0-33.0); MCHC 34.1 % (32.0-36.0); MCV 99 fL (80-95); MPV 10.8 fL (8.0-11.0); Neutrophils % 58.1; Platelet Count 288 10^3/uL (130-400); RBC 4.27 10^6/uL (3.93-5.22)
[2022-11-29 21:23] LABS: ALT 39 U/L (14-59); AST 21 U/L (15-37); Albumin 4.3 g/dL (3.4-5.0); Alkaline Phosphatase 97 U/L (46-116); Anion Gap 9.3 mmol/L (3-11); BUN 6 mg/dL (7-18); Bilirubin, Total 0.7 mg/dL (0.2-1.0); CO2 28.7 mmol/L (21.0-32.0); CREATININE 0.7 mg/dL (0.55-1.02); Calcium 9.7 mg/dL (8.5-10.1); Chloride 98 mmol/L (98-107); Glucose 95 mg/dL (74-106); Potassium 3.7 mmol/L (3.5-5.1); Sodium 136 mmol/L (136-145); Total Protein 7.5 g/dL (6.4-8.2)
[2022-11-29 22:08] LABS: Lipase 54 U/L (16-77)
== END 2022-11-29 21:04 | disposition home or self-care (01) ==
LOC: NCHCN 21:03
PROVIDERS: PCP Internal Medicine; Visit Provider Family Medicine
DX: K58.0 Irritable bowel syndrome with diarrhea (principal); K76.0 Fatty (change of) liver, not elsewhere classified; J44.9 Chronic obstructive pulmonary disease, unspecified
CPT/HCPCS: 80053; 83690; 85025

== ENCOUNTER 2023-01-17 10:00 | Outpatient (REF) | payer MEDICAID, SELFPAY ==
[2023-01-19 11:35] LABS: Campylobacter PCR Negative (Negative); Salmonella PCR Negative (Negative); Shiga Toxin PCR Negative (Negative); Shigella/Enteroinvasive Ecoli Negative (Negative)
== END 2023-01-17 10:01 | disposition home or self-care (01) ==
LOC: LBN 10:00
PROVIDERS: PCP Internal Medicine; Visit Provider Internal Medicine
DX: K58.0 Irritable bowel syndrome with diarrhea (principal)
CPT/HCPCS: 87329; 87505

== ENCOUNTER 2023-03-19 20:47 | Outpatient (REF) | payer MEDICAID, SELFPAY ==
[2023-03-19 20:47] LABS: Abs Immature Grans 0.02 10^3/uL (0.0-0.06); Absolute Basophil Count 0.08 10^3/uL (0.0-0.2); Absolute Eosinophil Count 0.33 10^3/uL (0.0-0.7); Absolute Lymphocyte Count 2.91 10^3/uL (1.2-3.4); Absolute Monocyte Count 0.88 10^3/uL (0.1-0.8); Absolute Neutrophil Count 4.72 10^3/uL (1.2-6.7); Basophils % 0.9; Eosinophils % 3.7; HCT 43.6 % (36.0-46.0); HGB 14.4 g/dL (11.2-15.7); Immature Grans % 0.2; Lymphocytes % 32.6; MCH 32.3 pg (27.0-33.0); MCV 98 fL (80-95); MPV 11.3 fL (8.0-11.0); Monocytes % 9.8; Neutrophils % 52.8; Platelet Count 346 10^3/uL (130-400); RBC 4.46 10^6/uL (3.93-5.22); RDW 11.9 % (11.7-14.6); WBC 8.94 10^3/uL (4.4-10.8)
[2023-03-19 20:57] LABS: ALT 15 U/L (14-59); AST 19 U/L (15-37); Albumin 4.3 g/dL (3.4-5.0); Alkaline Phosphatase 100 U/L (46-116); Anion Gap 6.5 mmol/L (3-11); BUN 4 mg/dL (7-18); Bilirubin, Total 0.4 mg/dL (0.2-1.0); CO2 31.5 mmol/L (21.0-32.0); CREATININE 0.7 mg/dL (0.55-1.02); Calcium 9.8 mg/dL (8.5-10.1); Chloride 102 mmol/L (98-107); Glucose 83 mg/dL (74-106); Lipase 36 U/L (16-77); Potassium 4.6 mmol/L (3.5-5.1); Sodium 140 mmol/L (136-145); Total Protein 7.6 g/dL (6.4-8.2)
== END 2023-03-19 20:48 | disposition home or self-care (01) ==
LOC: NCHCN 20:47
PROVIDERS: PCP Internal Medicine; Visit Provider Internal Medicine
DX: R10.9 Unspecified abdominal pain (principal)
CPT/HCPCS: 80053; 83690; 85025

== ENCOUNTER → 2023-06-21 00:17 | Outpatient (CLI) | payer MEDICAID, SELFPAY ==
--- NOTE | 2023-06-21 | DI.MAMMO_ITS ---
Exam(s) MAMMO SCREENING EXAM: MAMMO SCREENING CLINICAL HISTORY: SCREENING, Z12.31. TECHNIQUE: Bilateral full field digital CC and MLO mammographic images were obtained with 3D tomosyn thesis and utilizing computer aided detection (CAD). COMPARISON: None FINDINGS: There are no CAD designations. Small benign-appearing nodules in upper outer quadrants bilaterally have the appearance of small sylvia gn intramammary lymph nodes. There are no spiculated masses nor malignant appearing microcalcification groups. There is no significant architectural distortion nor skin thickening-retraction. IMPRESSION: No radiographic evidence of malignancy. BI-RADS Category 1 - Negative Breast Density - Category B - Scattered areas of fibroglandular density Breast density Category C or D implies that the patient has dense breast tissue. Dense breast tissue can make it harder to find cancer on a mammogram. Dense breast tissue is also associated with an incr eased risk of breast cancer. This information about the result of the mammogram report was provided to the patient to raise their awareness. Use this report when you speak with the patient about their risks for breast cancer, which includes their family history. At that time, you may recommend additional screening tests (Ultrasoun d or MRI) as these tests may add significant information. A negative radiographic report should not delay biopsy if a dominant or clinically suspicious mass is present. Up to ten percent of cancers are not identified on mammography. A negative report may reinforce clinical impression. Adenosis and dense breasts may obscure an underlying neoplasm. False positive reports average 6 to 10%. Patient will receive a letter notifying them of these results.
--- NOTE | 2023-06-21 | DI.CT_ITS ---
Exam(s) CT ABDOMEN PELVIS WO EXAM: CT ABDOMEN PELVIS WO CLINICAL HISTORY: ABD PAIN, R10.9. TECHNIQUE: Imaging Protocol: Axial computed tomography images with coronal and sagittal reformatted images were created and reviewed CONTRAST MATERIAL: Intravenous: none Oral: None COMPARISON: CT CT ABDOMEN PELVIS WO from 06/06/2022 FINDINGS: VISUALIZED LUNG BASES: No nodules nor pleural effusions evident. ABDOMEN: There is no ascites. No free air. LIVER: There are no obvious focal hepatic lesions evident of this noninfused study. GALLBLADDER/BILIARY: No obvious gallbladder pathology. CBD is not dilated. PANCREAS: No evidence of pancreatic mass nor dilatation of the pancreatic duct. SPLEEN: Spleen is not enlarged. No obvious intrasplenic lesions. ADRENALS: There are no significant adrenal masses. KIDNEYS:No cysts evident. No solid renal masses. No calculi nor hydronephrosis. . ABDOMINAL AORTA: Calcified but not enlarged. Common iliac arteries are also calcified but not enlarg ed. LYMPH NODES: There is no retroperitoneal nor paraaortic adenopathy. ABDOMINAL WALL: No evidence of significant anterior abdominal wall nor inguinal hernia. GI: There is no evidence of bowel obstruction, free air, nor abscess. PELVIS: LYMPH NODES: There is no intrapelvic nor inguinal adenopathy. GI: Appendix is not seen and may be surgically absent.No significant sigmoid diverticular disease. T here are no metallic clips evident in the colon, given the history here. No colitis pattern. URINARY BLADDER: Collapsed. REPRODUCTIVE: Surgically absent. No adnexal masses. OSSEOUS: No significant osseous lesions. IMPRESSION: 1. No significant acute findings in the abdomen pelvis. 2. Uterus is surgically absent. There are no abnormal adnexal masses. 3. RADIATION DOSE DELIVERED: Total DLP DATA REPOSITORY: All CT scans at this facility are submitted to the National Radiology Data Registry (NRDR) Dose Index Registry (DIR) with the [employer] (ACR). RADIATION OPTIMIZATION: All CT scans at this facility use at least one of these dose optimization te chniques: automated exposure control; mA and/or kV adjustment per patient size (includes targeted exa ms where dose is matched to clinical indication); or iterative reconstruction.
== END ==
PROVIDERS: PCP Internal Medicine; Visit Provider Internal Medicine
DX: Z12.31 Encounter for screening mammogram for malignant neoplasm of breast (principal); R10.9 Unspecified abdominal pain
CPT/HCPCS: 77063; 77067; 74176

== ENCOUNTER → 2023-07-16 02:31 | Outpatient (CLI) | payer MEDICAID, SELFPAY ==
--- NOTE | 2023-07-16 | DI.MRI_ITS ---
Exam(s) MR BRAIN WO EXAM: MR BRAIN WO CLINICAL HISTORY: COMPRESSION OF BRAIN G93.5 CHIARI MALFORMATION TECHNIQUE: Multiplanar multisequence MRI of the brain was performed. COMPARISON: CT CT HEAD WO/W FACIAL W from 06/06/2020 FINDINGS: Exam is somewhat limited by motion. VENTRICLES AND EXTRA AXIAL SPACES: Normal in size and morphology for the patient's age. MIDLINE SHIFT: None. CEREBRAL PARENCHYMA: No focus of restricted diffusion to suggest acute infarct. No space-occupying le lesly identified. No abnormal white matter signal. HEMORRHAGE: None. BRAINSTEM/CEREBELLUM: Mildly low lying cerebellar tonsils, extending down to the level of the dens. No evidence of compression. Are in inferior posterior fossa midline craniectomy again noted. VISUALIZED PARANASAL SINUSES/MASTOIDS:Mild ethmoid sinus mucosal thickening. Mild mucosal thickening and inferior right maxillary sinus. Vasculature: Normal flow void. PITUITARY GLAND: Unremarkable. ORBITS: Unremarkable. IMPRESSION: Cerebellar tot cells are mildly low lying. There is no evidence of compression of the brainstem. Th ere has been an inferior right posterior fossa craniectomy. DATA REPOSITORY:
== END ==
PROVIDERS: PCP Family Medicine; Visit Provider Internal Medicine
DX: G93.5 Compression of brain (principal); Z98.890 Other specified postprocedural states
CPT/HCPCS: 70551

== ENCOUNTER 2023-11-15 15:27 | Outpatient (REF) | payer MEDICAID, SELFPAY ==
[2023-11-15 15:43] LABS: Abs Immature Grans 0.02 10^3/uL (0.0-0.06); Absolute Basophil Count 0.08 10^3/uL (0.0-0.2); Absolute Eosinophil Count 0.15 10^3/uL (0.0-0.7); Absolute Lymphocyte Count 2.27 10^3/uL (1.2-3.4); Absolute Monocyte Count 0.55 10^3/uL (0.1-0.8); Absolute Neutrophil Count 5.12 10^3/uL (1.2-6.7); Eosinophils % 1.8 %; HCT 41.5 % (36.0-46.0); HGB 13.8 g/dL (11.2-15.7); Immature Grans % 0.2 %; Lymphocytes % 27.7 %; MCH 32.7 pg (27.0-33.0); MCHC 33.3 % (32.0-36.0); MCV 98 fL (80-95); MPV 11.3 fL (8.0-11.0); Monocytes % 6.7 %; Neutrophils % 62.6 %; Platelet Count 267 10^3/uL (130-400); RBC 4.22 10^6/uL (3.93-5.22); RDW 12.5 % (11.7-14.6); RDW-SD 45.2 fL; WBC 8.19 10^3/uL (4.4-10.8)
[2023-11-15 16:34] LABS: Iron 92 ug/dL (50-170); Total Iron Binding Capacity 290 ug/dL (250-450); Transferrin Sat 32 % (15-50)
[2023-11-15 16:53] LABS: ALT 23 U/L (14-59); AST 22 U/L (15-37); Albumin 3.9 g/dL (3.4-5.0); Alkaline Phosphatase 99 U/L (46-116); BUN 4 mg/dL (7-18); Bilirubin, Total 0.34 mg/dL (0.2-1.0); CREATININE 0.7 mg/dL (0.55-1.02); Calcium 9.1 mg/dL (8.5-10.1); Chloride 101 mmol/L (98-107); Estimated GFR 103.35 (mL/min/1.73m2); Ferritin 136 ng/mL (8-252); Folate 3.1 ng/mL (8.6-20.0); Glucose 104 mg/dL (74-106); Potassium 3.9 mmol/L (3.5-5.1); Sodium 141 mmol/L (136-145); TSH 0.66 uIU/Ml (0.36-3.74); Vitamin B12 409 pg/mL (193-986); Vitamin D 25 Total 20.9 ng/mL (30-100)
== END 2023-11-15 15:28 | disposition home or self-care (01) ==
LOC: NCHCN 15:27
PROVIDERS: PCP Family Medicine; Visit Provider Family Medicine
DX: R53.83 Other fatigue (principal)
CPT/HCPCS: 80053; 82306; 82607; 82728; 82746; 83540; 83550; 84443; 85025

== ENCOUNTER 2023-11-29 00:41 | Outpatient (CLI) | payer MEDICAID, SELFPAY ==
--- NOTE | 2023-11-29 16:10 | DI.CT_ITS ---
Exam(s) CT CHEST WO EXAM: CT CHEST WO CLINICAL HISTORY: R06.00 Dyspnea, unspecified; COPD,dypnea,sputum production, Also Chest TECHNIQUE: Imaging Protocol: Axial computed tomography images with coronal and sagittal reformatted images were created and reviewed CONTRAST MATERIAL: Noncontrast greater in the upper lobes. COMPARISON: CT CT CHEST/ABD/PEL WO from 03/23/2022 FINDINGS: Pulmonary parenchyma: No consolidation. No dominant measurable mass. [id number] emphysematous changes greater in the upper lobes. Stable areas of scarring in the medial right middle lobe and inf erior lingula. 4 millimeter nodule right upper lobe appears new from prior. Tracheobronchial tree: No bronchiectasis. Mucous plugging seen in portion of the medial basal segmen t of the right lower lobe. Mediastinum and Yolie: No dominant adenopathy or fluid collection. Pleura: No effusion. No pneumothorax. Heart: The heart is not dilated. No coronary artery calcifications are seen. Aorta: Thoracic aorta non-dilated. Mild atherosclerotic changes. Upper abdomen: No acute findings. Bones: Degenerative changes in the spine. Soft tissues: Unremarkable. IMPRESSION: Emphysematous changes in the upper lobes. Focal area of mucous plugging in the right lower lobe medi al basilar segment bronchus. New 4 millimeter nodule periphery of the right upper lobe. Consider follow-up in 1 year. RADIATION DOSE DELIVERED: Total DLP DATA REPOSITORY: All CT scans at this facility are submitted to the National Radiology Data Registry (NRDR) Dose Index Registry (DIR) with the [employer] (ACR). RADIATION OPTIMIZATION: All CT scans at this facility use at least one of these dose optimization te chniques: automated exposure control; mA and/or kV adjustment per patient size (includes targeted exa ms where dose is matched to clinical indication); or iterative reconstruction.
== END 2023-11-29 01:01 ==
LOC: DI 00:42
PROVIDERS: PCP Family Medicine; Visit Provider Family Medicine
DX: R91.8 Other nonspecific abnormal finding of lung field (principal)
CPT/HCPCS: 71250

== ENCOUNTER 2024-06-29 13:10 | Outpatient (REF) | payer MEDICAID, SELFPAY ==
[2024-06-29 14:56] LABS: ESR 10 mm/hr (0-30)
[2024-06-29 14:57] LABS: Abs Immature Grans 0.02 10^3/uL (0.0-0.06); Absolute Basophil Count 0.06 10^3/uL (0.0-0.2); Absolute Eosinophil Count 0.13 10^3/uL (0.0-0.7); Absolute Lymphocyte Count 1.94 10^3/uL (1.2-3.4); Absolute Monocyte Count 0.52 10^3/uL (0.1-0.8); Absolute Neutrophil Count 3.64 10^3/uL (1.2-6.7); Eosinophils % 2.1 %; HCT 49.2 % (36.0-46.0); HGB 15.9 g/dL (11.2-15.7); Immature Grans % 0.3 %; Lymphocytes % 30.7 %; MCH 30.3 pg (27.0-33.0); MCHC 32.3 % (32.0-36.0); MCV 94 fL (80-95); MPV 11.9 fL (8.0-11.0); Monocytes % 8.2 %; Neutrophils % 57.7 %; Platelet Count 235 10^3/uL (130-400); RBC 5.25 10^6/uL (3.93-5.22); RDW 15.4 % (11.7-14.6); RDW-SD 53.1 fL; WBC 6.31 10^3/uL (4.4-10.8)
[2024-06-29 15:55] LABS: Ferritin 95 ng/mL (8-252); Folate 5.4 ng/mL (8.6-20.0); Magnesium 1.9 mg/dL (1.8-2.4); Vitamin D 25 Total 23 ng/mL (30-100)
[2024-06-29 16:01] LABS: Iron 57 ug/dL (50-170); Total Iron Binding Capacity 343 ug/dL (250-450); Transferrin Sat 17 % (15-50)
[2024-07-14 13:53] LABS: Macro Type 2 0 %
[2024-07-14 13:54] LABS: CK-BB 0 %; CK-MB 0 %; CK-MM 100 %; Macro Type 1 0 %
== END 2024-06-29 13:11 | disposition home or self-care (01) ==
LOC: NCHCN 13:10
PROVIDERS: PCP Family Medicine; Visit Provider Family Medicine
DX: M62.81 Muscle weakness (generalized) (principal); E53.8 Deficiency of other specified B group vitamins; E55.9 Vitamin D deficiency, unspecified
CPT/HCPCS: 82306; 82550; 82552; 85652; 82728; 82746; 83540; 83550; 83735; 85025

== ENCOUNTER 2025-01-22 03:11 | Outpatient (CLI) | payer MEDICAID, SELFPAY ==
--- NOTE | 2025-01-22 13:50 | DI.RAD_ITS ---
Exam(s) XR HIP PELVIS ADULT BL XR FEMUR LT EXAM: XR HIP PELVIS ADULT BL CLINICAL HISTORY: RT AND LT HIP PAIN,M25.551,M25.552. TECHNIQUE: 2D digital imaging was performed. Four views of the pelvis and hips. AP and lateral views of the femur. COMPARISON: CR PELVIS WITH OBLIQUES 3 VIEWS from 11/29/2014 CR XR KNEE LT 3V AP,LAT,JOSEPH from 11/15/2022 CR XR FEMUR LT from 01/22/2025 FINDINGS: BONES: No acute fracture is present. No bony destructive lesion is seen. A stable sclerotic lesion is noted in the distal femur, likely enchondroma versus old bone infarct. JOINTS: No dislocation present. Hip joint spaces are maintained. There is mild bilateral acetabular spurring. SI joints and pubic symphysis are unremarkable. SOFT TISSUE: Normal. IMPRESSION: Mild degenerative changes of the hips. Stable benign appearing sclerotic lesion in the distal femoral shaft. DATA REPOSITORY: RADIATION DOSE DELIVERED:
== END 2025-01-22 03:31 ==
PROVIDERS: PCP Family Medicine; Visit Provider Family Medicine
DX: M79.652 Pain in left thigh (principal)
CPT/HCPCS: 73521; 73552